=== PATIENT | male | born 1960 | race Caucasian/White ===

== ENCOUNTER 2024-11-21 09:43 | Inpatient (IN) | payer OTHER, SELFPAY ==
[2024-11-21 09:44] VITALS: BP 153/77; PULSE 89; RESP 16; TEMP 36.7; O2SAT 97
[2024-11-21 10:10] LABS: Absolute Neutrophil Count 9.1 X10^3/uL (2.0-7.7); Basophil# 0.05 X10^3/uL; Basophil% 0.4 % (0-1); Eosinophil# 0.12 X10^3/uL; Hematocrit 38.6 % (40-54); Hemoglobin 12.5 g/dL (13.0-16.5); Lymphocyte % 12.9 % (19-41); Mean Corp Hgb Conc 32.4 g/dL (32-36); Mean Corpuscular Hgb 28.4 pg (27.0-32.0); Mean Corpuscular Volume 87.7 fL (80-94); Mean Platelet Vol. 10.2 fl (6.2-12.0); Monocyte# 0.78 X10^3/uL; Monocyte% 6.7 % (0-10); NRBC Flagged by Analyzer 0 % (0-5); Neutrophil # 9.09 X10^3/uL (2.7-7.7); Neutrophil % 78.1 % (47-70); Platelet Count 477 K/mm3 (150-450); RBC Distribution Width SD 41.9 fl (35.1-43.9); White Blood Count 11.6 K/mm3 (4.4-11.0)
[2024-11-21 10:35] LABS: Anion Gap 14 (5-15); BUN 17 mg/dL (4-19); BUN/Creat Ratio 16.6 RATIO (10-20); Calcium,Total 9.9 mg/dL (7.6-11.0); Chloride 94 mmol/L (98-108); Creatinine, Serum 1.03 mg/dL (0.70-1.20); EST Glomerular Filtration Rate 82 (>60); Glucose 282 mg/dL (70-99); Potassium 4.8 mmol/L (3.3-5.1); Sodium Level 132 mmol/L (133-145)
[2024-11-21 11:28] LABS: Bacteria 0 SEEN /hpf (None Seen); Mucous, Urine 0 SEEN /hpf (<or=2+); Squamous Epithelial Cells - UA 0 SEEN /hpf (0-5); White Blood Cells 0 SEEN /hpf (0-5)
--- NOTE | 2024-11-21 11:30 | RAD_ITS ---
PROCEDURE: KNEE 4 OR MORE VIEWS REASON FOR EXAM: Right knee replacement on 10/11/2024. Wound on right knee started leaking fluid 3 days ago. TECHNIQUE: 4 view(s) of the right knee COMPARISON: None. FINDINGS: A total right knee arthroplasty is noted. No fractures are identified. Normal alignment. No effusion. Soft tissues are unremarkable. RAD/Knee 4 or More Views IMPRESSION: Total right knee arthroplasty in good alignment with no evidence of periprosthe tic fractures. Reading Location: [place] [address]
[2024-11-21 11:32] LABS: Color, Urine Yellow (Yellow); Glucose, Dipstick Normal (Normal); Ketone-Dipstick 15 mg/dl (Negative); Leukocyte Esterase-Dipstick Negative /ul (Negative); Nitrite-Dipstick Negative (Negative); Occult Blood-Urine Negative /ul (Negative); Protein-Dipstick 15 mg/dl (Negative); Urine Bilirubin Dipstick Negative (Negative); Urine Clarity Clear (Clear); Urine Urobilinogen Normal (Normal)
[2024-11-21 11:35] LABS: Prothrombin Time (Protime)PT. 13.6 SECONDS (11.7-14.9)
[2024-11-21 11:36] LABS: Partial Thromboplast Time 29.5 Seconds (24.1-36.2)
[2024-11-21 11:40] LABS: Red Blood Cells-Urine 0 SEEN /hpf (0-5)
[2024-11-21 11:43] VITALS: BP 132/72; PULSE 97; RESP 16; TEMP 36.7; O2SAT 95
[2024-11-21 11:46] VITALS: BMI 31.4
[2024-11-21 11:50] LABS: Lactic Acid < 1.0 mmol/L (0.0-2.0)
[2024-11-21 11:55] LABS: Absolute Lymphocyte Count 1.49 X10^3/uL (0.83-4.51); Basophil# 0.05 X10^3/uL; Basophil% 0.4 % (0-1); Eosinophil# 0.06 X10^3/uL; Eosinophils% 0.5 % (0-5); Hematocrit 35.3 % (40-54); Hemoglobin 11.6 g/dL (13.0-16.5); Lymphocyte # 1.49 X10^3/ul (0.83-4.51); Lymphocyte % 11.7 % (19-41); Mean Corp Hgb Conc 32.9 g/dL (32-36); Mean Corpuscular Hgb 28.8 pg (27.0-32.0); Mean Corpuscular Volume 87.6 fL (80-94); Mean Platelet Vol. 10.1 fl (6.2-12.0); Monocyte# 0.93 X10^3/uL; Monocyte% 7.3 % (0-10); NRBC Flagged by Analyzer 0 % (0-5); Neutrophil # 9.95 X10^3/uL (2.7-7.7); Neutrophil % 78.4 % (47-70); Platelet Count 411 K/mm3 (150-450); RBC Distribution Width SD 41.6 fl (35.1-43.9); Red Blood Count 4.03 M/mm3 (4.6-6.2); White Blood Count 12.7 K/mm3 (4.4-11.0)
[2024-11-21 12:20] LABS: AST(SGOT) 17 U/L (<=37); Alanine Aminotransfer ALT/SGPT 10 U/L (<=46); Albumin, Serum 3.6 g/dL (3.4-4.8); Alkaline Phosphatase 77 U/L (40-129); Anion Gap 13 (5-15); BUN 17 mg/dL (4-19); BUN/Creat Ratio 16.6 RATIO (10-20); Calcium,Total 9.5 mg/dL (7.6-11.0); Carbon Dioxide 21.6 mmol/L (21.0-32.0); Chloride 95 mmol/L (98-108); EST Glomerular Filtration Rate 85 (>60); Estimated Creatinine Clearance 91.99 ml/min (50-250); Globulin 3.7 g/dL (2.2-4.2); Glucose 188 mg/dL (70-99); Potassium 4.1 mmol/L (3.3-5.1); Protein, Total 7.4 g/dL (5.9-8.4); Sodium Level 129 mmol/L (133-145); Total Bilirubin 0.41 mg/dL (0.00-1.30)
[2024-11-21] MEDS: Morphine 4 MG/ML Syringe IV (12:21)
[2024-11-21] MEDS: Piperacil/Tazobactam 3.375 GM in 0.9% Normal Saline (50mL MB+) 50 ML IV ×2 (12:22→21:18)
[2024-11-21] MEDS: Ondansetron 4 MG/2 ML Vial IV (12:22)
--- NOTE | 2024-11-21 12:44 | EX.ED.DYSGE1 ---
HPI History of Present Illness Chief Complaint: Wound Narrative Narrative: Patient is a 64-year-old male with a past medical history of diabetes, knee replacement approximately [address] Humphrey presents to the emergency department with a chief complaint of right knee pain and pus coming from his knee. According to patient's and on Tuesday of this past week he started developing pain and had some drainage coming from his knee. They state that this progressively worsened and noted that he had a low-grade fever and his sugars have been running high. They state that they followed up with the physician hair or beauty salon assistant in Dr. Humphrey's office yesterday took cultures and noted that he would likely go to the operating room tomorrow for surgery. They prescribed doxycycline however according to patient and pain has been increasing and there is more purulent drainage coming from the wound therefore they came here further evaluation management. PFSH PFSH Home Medications ?Medication ?Instructions ?Recorded ?Last Taken ?Type chlorthalidone 25 mg tablet 25 mg PO DAILY 11/21/24 11/21/24 History diclofenac sodium 50 mg 50 mg PO Q12H 11/21/24 11/20/24 History tablet,delayed release doxycycline monohydrate 100 mg 100 mg PO Q12H 11/21/24 11/21/24 History capsule insulin glargine 100 unit/mL (3 55 unit subcut QHS 11/21/24 11/20/24 History mL) subcutaneous pen (Lantus Solostar U-100 Insulin) insulin lispro 100 unit/mL 1 sliding scale dose subcut 11/21/24 11/21/24 History subcutaneous pen .COMPLEX lisinopril 20 mg tablet 20 mg PO BID 11/21/24 11/21/24 History Allergy/AdvReac Type Severity Reaction Status Date / Time No Known Allergies Allergy Verified 11/21/24 09:47 Surgical History Total knee replacement status Social History Smoking Status: Unknown if ever smoked ROS ROS ED ROS Narrative Constitutional: Complains of fevers as noted above denies headache, lightness, dizziness Eyes: Denies change in vision double vision blurry vision Cardiovascular: Denies chest pain or palpitations Respiratory: Denies shortness of breath Abdomen: Denies nausea vomit diarrhea Neurological: Denies numbness, weakness, tingling Musculoskeletal: Complains of right knee pain and purulent drainage as noted above EXAM Physical Exam Narrative Exam Narrative: General: Patient lying bed rest comfortably appear to be uncomfortable from his right knee pain Head: Atraumatic, normocephalic Eyes: PERRL bilaterally, EOMI bilateral, no conjunctival injection noted Neck: Soft, supple, trachea midline Cardiovascular: Regular rate and rhythm no murmurs gallops rubs noted Respiratory: Clear to auscultation bilaterally Abdomen: No tenderness palpation Musculoskeletal: Patient has purulent drainage coming from the right knee at the distal aspect of his incision no surrounding erythema noted Extremities: Patient has pain with attempted range of motion of his right knee, +5/5 strength noted in the bilateral upper extremities as well as the left lower extremity, DP pulses +2/4 in the bilateral lower extremities Neurological: Patient follow commands knew that he was at [facility] year is 2024. Sensation grossly intact Skin: See musculoskeletal Const Vital Signs: 11/21/24 09:44 11/21/24 11:43 Temperature 98.1 F 98.1 F Temperature Source Oral Oral Pulse Rate 89 97 Respiratory Rate 16 16 Blood Pressure 153/77 H 132/72 H Blood Pressure Mean 102 92 Pulse Ox 97 95 Oxygen Delivery Method Room Air Room Air MDM MDM MDM Narrative Medical decision making narrative: Patient is a 64-year-old male who presented to the emergency department the chief complaint of purulent drainage coming from his right knee. On the differential diagnose includes but not limited to infected total knee arthroplasty, subcutaneous infection. Once workup is obtained reviewed he will be reevaluated. Patient CBC was significant for a leukocytosis of 12,000, hemoglobin is 11.6, plate count was noted be 411. Patient's INR normal at 1, PT of 13.6. Patient sodium was low indicating hyponatremia 129, anion gap was noted be 13, glucose 188. Patient lactic acid less than 1, AST and ALT were 17 and 10 respectively. Patient urinalysis showed no evidence of infection. Patient x-ray of the knee reviewed by myself and by radiology showed total knee arthroplasty in good alignment with no evidence of periprosthetic fractures. Patient's EKG reviewed and showed sinus rhythm rate 93 bpm. I called and discussed case with Dr. Humphrey and he states that given his medical comorbidities he is recommending admission to the hospitalist service. Will give the patient IV vancomycin and Zosyn. Discussed case with hospitalist Dr. Stanford who accept patient for admission. Patient notified as well as significant other bedside all question concerns answered. Lab Data Labs: Laboratory Results - last 24 hr 11/21/24 11/21/24 11/21/24 09:54 10:57 11:00 WBC 11.6 H 12.7 H RBC 4.40 L 4.03 L Hgb 12.5 L 11.6 L Hct 38.6 L 35.3 L MCV 87.7 87.6 MCH 28.4 28.8 MCHC 32.4 32.9 RDW Std Deviation 41.9 41.6 RDW Coeff of Primo 13.0 13.0 Plt Count 477 H 411 MPV 10.2 10.1 Immature Gran % (Auto) 0.900 1.700 H Neut % (Auto) 78.1 H 78.4 H Lymph % (Auto) 12.9 L 11.7 L [place] % (Auto) 6.7 7.3 Eos % (Auto) 1.0 0.5 Baso % (Auto) 0.4 0.4 Absolute Neuts (auto) 9.1 H 10.0 H Absolute Lymphs (auto) 1.50 1.49 Nucleated RBC % 0 0 PT 13.6 INR 1.0 APTT 29.5 Sodium 132 L 129 L Potassium 4.8 4.1 Chloride 94 L 95 L Carbon Dioxide 24.0 21.6 Anion Gap 14 13 BUN 17 17 Creatinine 1.03 1.00 Estim Creat Clear Calc 91.99 Est GFR (MDRD) Non-Af 82 85 BUN/Creatinine Ratio 16.6 16.6 Glucose 282 H 188 H Lactic Acid < 1.0 Calcium 9.9 9.5 Total Bilirubin 0.41 AST 17 ALT 10 Alkaline Phosphatase 77 Total Protein 7.4 Albumin 3.6 Globulin 3.7 Albumin/Globulin Ratio 1.0 Urine Color Urine Clarity Urine pH Ur Specific [place] Urine Protein Urine Glucose (UA) Urine Ketones Urine Occult Blood Urine Nitrite Urine Bilirubin Urine Urobilinogen Ur Leukocyte Esterase Urine RBC Urine WBC Ur Squamous Epith Cells Urine Bacteria Urine Mucus 11/21/24 11:18 WBC RBC Hgb Hct MCV MCH MCHC RDW Std Deviation RDW Coeff of Primo Plt Count MPV Immature Gran % (Auto) Neut % (Auto) Lymph % (Auto) [place] % (Auto) Eos % (Auto) Baso % (Auto) Absolute Neuts (auto) Absolute Lymphs (auto) Nucleated RBC % PT INR APTT Sodium Potassium Chloride Carbon Dioxide Anion Gap BUN Creatinine Estim Creat Clear Calc Est GFR (MDRD) Non-Af BUN/Creatinine Ratio Glucose Lactic Acid Calcium Total Bilirubin AST ALT Alkaline Phosphatase Total Protein Albumin Globulin Albumin/Globulin Ratio Urine Color Yellow Urine Clarity Clear Urine pH 6.0 Ur Specific [place] 1.020 Urine Protein 15 H Urine Glucose (UA) Normal Urine Ketones 15 H Urine Occult Blood Negative Urine Nitrite Negative Urine Bilirubin Negative Urine Urobilinogen Normal Ur Leukocyte Esterase Negative Urine RBC 0 SEEN Urine WBC 0 SEEN Ur Squamous Epith Cells 0 SEEN Urine Bacteria 0 SEEN Urine Mucus 0 SEEN Radiography Diagnostic Testing: Clinical Impression(s) from Imaging Studies Knee X-Ray 11/21/24 11:30 IMPRESSION: Total right knee arthroplasty in good alignment with no evidence of periprosthetic fractures. Reading Location: [place] [address] Discharge Plan Triage Chief Complaint: Wound ED Provider: Shaheen Angelo Dx/Rx/DC Orders Prescriptions: No Action lisinopril 20 mg tablet 20 mg PO BID chlorthalidone 25 mg tablet 25 mg PO DAILY doxycycline monohydrate 100 mg capsule 100 mg PO Q12H diclofenac sodium 50 mg tablet,delayed release (DR/EC) 50 mg PO Q12H insulin lispro 100 unit/mL insulin pen 1 sliding scale dose SUBCUT .COMPLEX Patient Comments: Takes 20 units at breakfast, 20 units with lunch and 30 units with dinner Strength 100 UNIT/ML Rx Instructions: 1 sliding scale dose subcutaneously Takes 20 units at breakfast, 20 units with lunch and 30 units with dinner; insulin glargine [Lantus Solostar U-100 Insulin] 100 unit/mL (3 mL) insulin pen 55 unit subcut [facility] Primary Care Provider: Jose Joya Print Language: Stateless
--- NOTE | 2024-11-21 12:47 | PCM.HP.STD ---
HPI - General General Date of Admission: 11/21/24 Date of Service: 11/21/24 Chief Complaint: right knee pain and wound HPI Narrative JACQUES MALONEY, is a 64 M with a PMH as outlined who presents via the ED on 11/21/2024 with a complaint of right knee pain and wound. He had right knee replacement about [address] Humphrey and started having the pain in hte knee as well as the pus drainage. He said the pain started 3 days prior to admission. He was unable to fully flex or extend the knee and he notes that the knee was swollen and red. He did not have any discharge from the knee at that time but subsequently noted pus drainage a day prior to admission. He admitted to a low-grade fever but denied, chills, cough, chest pain, palpitations, swelling of the RLE or any other symptoms. He had been seen in the orthopedic surgeons office by LANCE the day before admission and started on p.o. doxycycline of which she took 2 doses before coming into the ED. Review of systems is otherwise negative. Vitals in the ED were Bp of 132/72, KS of 97, RR of 16 and temp of 98.1F. He was saturating at 95% on room air. CBC showed hb of 11.6, wbc of 12.7, platelets of 411. Chemistry showed sodium of 129, potassium of 4.1, bicarb of 21.6 and Cr of 1. Urinalysis showed no evidence of UTI. Xray of the right knee showed right total knee arthroplasty in good alignment with no evidence of periprosthetic fractures. Orthopedics was contacted by ED and recommended admission to medicine. Patient was started on IV vancomycin and zosyn and orthopedics is planning on surgery tomorrow. [facility] Home Medications ?Medication ?Instructions ?Recorded ?Last Taken ?Type chlorthalidone 25 mg tablet 25 mg PO DAILY 11/21/24 11/21/24 History diclofenac sodium 50 mg 50 mg PO Q12H 11/21/24 11/20/24 History tablet,delayed release doxycycline monohydrate 100 mg 100 mg PO Q12H 11/21/24 11/21/24 History capsule insulin glargine 100 unit/mL (3 55 unit subcut QHS 11/21/24 11/20/24 History mL) subcutaneous pen (Lantus Solostar U-100 Insulin) insulin lispro 100 unit/mL 1 sliding scale dose subcut 11/21/24 11/21/24 History subcutaneous pen .COMPLEX lisinopril 20 mg tablet 20 mg PO BID 11/21/24 11/21/24 History Allergy/AdvReac Type Severity Reaction Status Date / Time No Known Allergies Allergy Verified 11/21/24 09:47 Surgical History Total knee replacement status Social History Smoking Status: Unknown if ever smoked ROS Constitutional Constitutional: Reports fever(s); Denies anorexia, chills, fatigue, malaise or weakness Eyes Eyes: Denies change in vision ENT HEENT: Denies dysphagia, headache(s) or sore throat Cardiovascular Cardiovascular: Denies chest pain, dyspnea on exertion, edema, lightheadedness, orthopnea or palpitations Respiratory/Chest Respiratory/Chest: Denies cough, dyspnea, shortness of breath at rest or shortness of breath with exertion Gastrointestinal Gastrointestinal: Denies abdominal pain, constipation, diarrhea, nausea or vomiting Genitourinary Genitourinary: Denies burning urination or dysuria Musculoskeletal Musculoskeletal: Reports joint pain and joint swelling; Denies arthralgias or back pain Neurologic Neurologic: Denies confusion, dizziness, focal weakness, headache(s), numbness, seizure-like activity or seizures Psychiatric Psychiatric: Denies anxiety or depression Endocrine Endocrinology: Denies change in body appearance Vital Signs Vital Signs Vital Signs: 11/21/24 09:44 11/21/24 11:43 Temperature 98.1 F 98.1 F Temperature Source Oral Oral Pulse Rate 89 97 Respiratory Rate 16 16 Blood Pressure 153/77 H 132/72 H Blood Pressure Mean 102 92 Pulse Ox 97 95 Oxygen Delivery Method Room Air Room Air Weight Weight: 225 lb 1.471 oz Body Mass Index (BMI) 31.4 Physical Exam Const alert, oriented x3, no apparent distress and average body habitus General Appearance: cooperative HEENT normocephalic, head/scalp atraumatic, hearing grossly normal bilaterally and moist oral mucous membranes Mouth: oral and palatal mucosa normal Eyes PERRL, EOMs intact bilaterally and conjunctivae normal Neck no lymphadenopathy and supple Resp normal respiratory effort, no retractions, no use of accessory muscles and clear to auscultation bilaterally Cardio regular rate, regular rhythm, S1 normal heart sound, S2 normal heart sound and no murmurs GI normal to inspection, nondistended, normoactive bowel sounds, soft to palpation, non-tender and non-distended Extremity Extremity Narrative: as under skin. Limited flexion Skin Skin Narrative: right knee swollen, erythematous, 3 areas of pus discharge, mildly tender to touch. Neuro oriented x3 and CN's II-XII intact bilaterally Sensorium / Orientation: awake and alert Motor Exam: strength 5/5 throughout Psych affect normal Results Lab / Micro Data 11/21/24 11:00 11/21/24 11:00 Labs: Laboratory Results - last 24 hr 11/21/24 09:54: WBC 11.6 H, RBC 4.40 L, Hgb 12.5 L, Hct 38.6 L, MCV 87.7, MCH 28.4, MCHC 32.4, RDW Std Deviation 41.9, RDW Coeff of Primo 13.0, Plt Count 477 H, MPV 10.2, Immature Gran % (Auto) 0.900, Neut % (Auto) 78.1 H, Lymph % (Auto) 12.9 L, [place] % (Auto) 6.7, Eos % (Auto) 1.0, Baso % (Auto) 0.4, Absolute Neuts (auto) 9.1 H, Absolute Lymphs (auto) 1.50, Nucleated RBC % 0, Sodium 132 L, Potassium 4.8, Chloride 94 L, Carbon Dioxide 24.0, Anion Gap 14, BUN 17, Creatinine 1.03, Est GFR (MDRD) Non-Af 82, BUN/Creatinine Ratio 16.6, Glucose 282 H, Calcium 9.9 11/21/24 10:57: PT 13.6, INR 1.0, APTT 29.5, Lactic Acid < 1.0 11/21/24 11:00: WBC 12.7 H, RBC 4.03 L, Hgb 11.6 L, Hct 35.3 L, MCV 87.6, MCH 28.8, MCHC 32.9, RDW Std Deviation 41.6, RDW Coeff of Primo 13.0, Plt Count 411, MPV 10.1, Immature Gran % (Auto) 1.700 H, Neut % (Auto) 78.4 H, Lymph % (Auto) 11.7 L, [place] % (Auto) 7.3, Eos % (Auto) 0.5, Baso % (Auto) 0.4, Absolute Neuts (auto) 10.0 H, Absolute Lymphs (auto) 1.49, Nucleated RBC % 0, Sodium 129 L, Potassium 4.1, Chloride 95 L, Carbon Dioxide 21.6, Anion Gap 13, BUN 17, Creatinine 1.00, Estim Creat Clear Calc 91.99, Est GFR (MDRD) Non-Af 85, BUN/Creatinine Ratio 16.6, Glucose 188 H, Calcium 9.5, Total Bilirubin 0.41, AST 17, ALT 10, Alkaline Phosphatase 77, Total Protein 7.4, Albumin 3.6, Globulin 3.7, Albumin/Globulin Ratio 1.0 11/21/24 11:18: Urine Color Yellow, Urine Clarity Clear, Urine pH 6.0, Ur Specific [place] 1.020, Urine Protein 15 H, Urine Glucose (UA) Normal, Urine Ketones 15 H, Urine Occult Blood Negative, Urine Nitrite Negative, Urine Bilirubin Negative, Urine Urobilinogen Normal, Ur Leukocyte Esterase Negative, Urine RBC 0 SEEN, Urine WBC 0 SEEN, Ur Squamous Epith Cells 0 SEEN, Urine Bacteria 0 SEEN, Urine Mucus 0 SEEN Imaging Radiology Impression Knee X-Ray 11/21/24 11:30 IMPRESSION: Total right knee arthroplasty in good alignment with no evidence of periprosthetic fractures. Reading Location: [place] [address] Assessment & Plan Assessment/Plan (1) Postoperative infection of knee: PLAN: Plan #Post operative infection of the right knee Patient had right knee replacement by Dr. Humphrey 6 weeks ago. Patient said he was doing well until 3 days ago when he noticed swelling and redness of his right knee. The day before admission he noted that he was having discharge from the right knee also. He had been seen by the PA in Dr. Carrera's office the day before admission and started on p.o. doxycycline which she took only 2 doses. Patient having pus draining from his knee. He also has limited range of movement in the knee is swollen and erythematous. WBC is 12.7. X-ray of the knee done showed total right knee arthroplasty in good alignment with no evidence of periprosthetic fractures. Will start on IV vancomycin and Zosyn. Will get wound cultures and blood cultures. Orthopedic surgery consulted. ED doctor did speak to Dr. Humphrey who said he will plan for surgery tomorrow. #Type 2 diabetes mellitus On Lantus 55 units nightly. Insulin sliding scale. Accu-Cheks ACHS. #Hypertension: On chlorthalidone. DVT prophylaxis: Lovenox CODE STATUS: Full code Patient and counseled extensively about different types of CODE STATUS including full code, DNR CCA and DNR CCA. Patient elects to be full code. Total [id number] time 17 minutes. Charges/Coding Visit Charges Inpatient E&M: 94155 Init Hosp L3 Procedures Hospitalists Procedures: 64515 Advncd Care Plan 30 Min
[2024-11-21] MEDS: Vancomycin HCl 1,500 MG in 0.9% Normal Saline (500mL Bag) 500 ML 250 MG IV (13:26)
[2024-11-21 13:28] VITALS: BP 132/71; PULSE 86; RESP 16; TEMP 37.1; O2SAT 97
[2024-11-21 13:56] VITALS: BP 137/75; PULSE 85; RESP 18; TEMP 37.1; O2SAT 97
[2024-11-21 15:41] VITALS: BP 132/72; PULSE 91; RESP 16; TEMP 36.8; O2SAT 94
--- NOTE | 2024-11-21 16:20 | PCM.RX.CS ---
Consult Antibiotic Management Pharmacy has been consulted to manage selected antibiotic: Vancomycin Type of Intervention Type of Consult: New start Suspected Infection Suspected Infection: Other (joint infection) Labs Labs: Sodium 129 mmol/L (133-145) L 11/21/24 11:00 Potassium 4.1 mmol/L (3.3-5.1) 11/21/24 11:00 Chloride 95 mmol/L (98-108) L 11/21/24 11:00 Carbon Dioxide 21.6 mmol/L (21.0-32.0) 11/21/24 11:00 Anion Gap 13 (5-15) 11/21/24 11:00 BUN 17 mg/dL (4-19) 11/21/24 11:00 Creatinine 1.00 mg/dL (0.70-1.20) 11/21/24 11:00 Est GFR (MDRD) Non-Af 85 (>60) 11/21/24 11:00 BUN/Creatinine Ratio 16.6 RATIO (10-20) 11/21/24 11:00 Glucose 188 mg/dL (70-99) H 11/21/24 11:00 Microbiology Microbiology: Microbiology 11/21/24 11:05 Wound - Knee Gram Stain - Final Pharmacy Plan for Drug Dosing Pharmacy Plan for Drug Dosing: NEW START IV VANCOMYCIN Consulting Physician: Abdoulaye Indication: joint infection Goal Trough: 15-20 mg/dL SrCr: 1 mg/dL CrCl: 91 mL/min Comments: ER dose of 1500mg given 11/21 @ 1326 Vancomycin Dose: Will start 2000mg Q12 11/22 @ 0100 and get a trough prior to 4th total dose per policy. Pending Level: 11/23 @ 0030 Pharmacy Service will continue to monitor and adjust dosing as required.
[2024-11-21 16:56] LABS: Bedside Glucose 61 mg/dL (74-106)
[2024-11-21 17:29] VITALS: BMI 32.0
[2024-11-21 19:56] VITALS: BP 142/70; PULSE 90; RESP 18; TEMP 37; O2SAT 98
[2024-11-21] MEDS: Acetaminophen 325 MG Tablet 650 MG PO (20:01)
[2024-11-21] MEDS: Lisinopril 20 MG Tablet PO (21:18)
[2024-11-21] MEDS: oxyCODONE 5 MG Tablet PO (21:18)
[2024-11-21] MEDS: Insulin Glargine-YFGN 100 UNIT/ML Pen 55 UNIT SC (21:41)
[2024-11-21] MEDS: Insulin Lispro 100 UNIT/ML INSULN.PEN SC (21:42)
[2024-11-21 22:56] LABS: Bedside Glucose 251 mg/dL (74-106)
[2024-11-22] VITALS (14 sets, daily range): BP systolic 108–158; BP diastolic 61–91; PULSE 73–97; RESP 16–18; TEMP 35.7–37; O2SAT 94–100; BMI 32.0
[2024-11-22] MEDS: Vancomycin HCl 2,000 MG in 0.9% Normal Saline (500mL Bag) 500 ML 250 MG IV ×2 (01:39→14:03)
[2024-11-22 05:54] LABS: Absolute Lymphocyte Count 1.95 X10^3/uL (0.83-4.51); Absolute Neutrophil Count 7.7 X10^3/uL (2.0-7.7); Basophil# 0.04 X10^3/uL; Basophil% 0.4 % (0-1); Eosinophils% 1.8 % (0-5); Hematocrit 34.8 % (40-54); Hemoglobin 11.4 g/dL (13.0-16.5); Lymphocyte # 1.95 X10^3/ul (0.83-4.51); Lymphocyte % 17.8 % (19-41); Mean Corp Hgb Conc 32.8 g/dL (32-36); Mean Corpuscular Hgb 28.6 pg (27.0-32.0); Mean Corpuscular Volume 87.4 fL (80-94); Mean Platelet Vol. 9.8 fl (6.2-12.0); Monocyte# 0.99 X10^3/uL; Monocyte% 9.1 % (0-10); NRBC Flagged by Analyzer 0 % (0-5); Neutrophil # 7.69 X10^3/uL (2.7-7.7); Neutrophil % 70.4 % (47-70); Platelet Count 384 K/mm3 (150-450); RBC Distribution Width CV 13.2 % (11.6-14.6); RBC Distribution Width SD 42.2 fl (35.1-43.9); Red Blood Count 3.98 M/mm3 (4.6-6.2); White Blood Count 10.9 K/mm3 (4.4-11.0)
[2024-11-22] MEDS: Piperacil/Tazobactam 3.375 GM in 0.9% Normal Saline (50mL MB+) 50 ML IV ×3 (06:05→23:08)
[2024-11-22] MEDS: Insulin Lispro 100 UNIT/ML INSULN.PEN SC ×3 (06:50→21:46)
[2024-11-22 06:53] LABS: Anion Gap 11 (5-15); BUN 15 mg/dL (4-19); BUN/Creat Ratio 14.5 RATIO (10-20); Calcium,Total 9.3 mg/dL (7.6-11.0); Chloride 97 mmol/L (98-108); Creatinine, Serum 1.03 mg/dL (0.70-1.20); EST Glomerular Filtration Rate 82 (>60); Estimated Creatinine Clearance 88.55 ml/min (50-250); Glucose 199 mg/dL (70-99); Potassium 4.6 mmol/L (3.3-5.1); Sodium Level 133 mmol/L (133-145)
[2024-11-22 07:26] LABS: Hemoglobin A1c 6.7 % (<=5.6)
[2024-11-22 07:46] LABS: Bedside Glucose 204 mg/dL (74-106)
--- NOTE | 2024-11-22 07:54 | PCM.CONS.GEN ---
HPI Consult Data Date of Consult: 11/22/24 HPI Narrative HPI Narrative: History and Physical Subjective CC: Patient presents status post right total knee arthroplasty incision check. HPI: Patient is a 64-year-old male presenting about 6 weeks out following right total knee arthroplasty. Patient states that on Tuesday night he had a lump start right under the incision at the distal portion that was about a pea-sized. Patient states that this lump has gotten larger since Tuesday and increased in redness. Patient states that he felt that there was a change in his knee about 2 weeks ago when his knee got stiff and hard to move and he had a stopping point in therapy. Patient states for the past 2 days his sugar has been high into the 250s which is unlike him. Patient states that in physical therapy today they thought there was potentially drainage. Patient denies having any falls or scrapes over the knee. Patient denies any injuries or bumping of the knee. Patient denies any fever, chills, signs of infection. Patient denies any new numbness or tingling. Patient denies history of deep vein thrombosis and/or pulmonary embolism. Patient denies recent use of antibiotics other than doxycycline which she started last night. Patient denies any current dental pain or dental infections. Patient does admit to being a type I diabetic. Patient states that his sugars have been very high. Patient states that he is taking aspirin 1 time per day for anticoagulation at this point. Patient denies any changes since his last clearance with primary care provider on 09/26/2024. Patient's allergy list was reviewed and updated in office today. Allergies are no known drug allergies. Medication list was reviewed and updated in office today. Patient and his called on 11/21/2024 stating that the knee looked worse, red, and busted open. Patient and his were concerned that they should go to the emergency department with him being a type I diabetic. Patient and his were advised that they could go to [facility] emergency department at this time. Physical exam: Patient walks with a relatively nonantalgic gait. Patient is without assistive device in office today. Right knee on inspection is with 2 fluctuant erythematous swellings under the incision at the distal pole of the incision. With compression of fluctuant mass purulent fluid is expressed. Extension is to 0 degrees with some restriction and pain. Flexion is to 90 degrees with restriction and pain. Sensation intact to light touch. Neurovascularly intact overall. Negative Homans bilaterally. X-rays at 2-week visit revealed stable implants with no evidence of loosening or lucencies. No lytic or blastic lesions were appreciated. Advance Care Plan: Other Directive, LIVING WILL Effective Date: 08/08/2024 Other Directive, POA Effective Date: 08/08/2024 Past Medical History: Medical Problems: Arthritis, Diabetes, Hypercholesterolemia, High Blood Pressure, hyperlipidemia Acid Reflux - occasionally Accidents: None Surgical Hx: Hernia Repair - x2 bilaterally Knee Replacement Rt - (10/11/2024) ROBOTIC ASSISTED DR. TILLMAN AT [facility] Anesthesia Complications: None Assistive Devices: Cane Reviewed, no changes - 11/20/2024 at 2:38 pm by Lorene Lo Family History: Mother: Stroke. 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 Personal Habits: Cigarette Use: Never Smoked Cigarettes.Smokeless Tobacco: Never Used Smokeless Tobacco.E-Cigarette Use: Never used.Alcohol: Denies use.Drug Use: Denies Use.Enjoy Exercising: Daily. Reviewed, no changes - 11/20/2024 at 2:39 pm by Lorene Lo Review Of Systems: Constitutional: Denies change in appetite, fever and weight change. Cardiovasular: Denies chest pain, heart murmur and irregular heartbeat. Respiratory: Denies cough, pneumonia, shortness of breath, tuberculosis and wheezing. Gastrointestinal: Reports heartburn, but denies constipation, diarrhea, nausea, rectal itching, bloody stools and vomiting. Genitourinary: . (F Genital Sx) . (Urinary Sx) Musculoskeletal: Reports leg swelling, pain and trouble walking, but denies weakness. Skin: Denies Raynaud's, history of shingles and tattoo. Neurological: Denies ambulatory dysfunction, dizziness, numbness/tingling and tremor. Psychiatric: Reports stress, but denies anxiety and insomnia. Hematologic/Lymphatic: Denies anemia, bleeding/bruising tendency and past transfusion. Reviewed, no changes - 11/20/2024 at 4:11 pm by Kiarra Alvarado Impression and plan: 1. Possible infection following right total knee arthroplasty. The fluid was attempted to be pulled from fluctuant mass in office today. Aspiration of the mass was unsuccessful. Compression of fluctuant mass resulted in expression of purulent fluid. At this time cultures were taken of purulent fluid. Patient was given a lab order slip for blood work which included CBC, ESR, CRP to evaluate for possible infection. At this time we have reserved time at [facility] to do an irrigation and debridement on afternoon. At this time patient was placed on doxycycline. Doxycycline was sent to patient's pharmacy of choice. We will plan for surgery as an observation patient at [facility]. Patient and his called in on 11/21/2024 stating that the wound has busted open and the knee is warm and felt like maybe they should go to the emergency department. Patient and his were advised to head to the emergency department at this point. The surgeon did discuss and review all treatment options with the patient including surgical versus nonsurgical. At this time the patient does wish to proceed with the above-stated procedure. Potential risks benefits and complications of the procedure were discussed and reviewed with the patient including but not limited to , infection, nerve and blood vessel damage, persistent pain, numbness, tingling, paresthesias, blood clot, pulmonary embolism, in the requirement for possible further surgery. Patient expressed full understanding. Has no further questions for the doctor. Does agree to proceed with the above-stated procedure, and has signed the appropriate surgery consent form. Patient denies history of deep vein thrombosis and/or pulmonary embolism. Patient denies recent use of antibiotics other than doxycycline which she started last night. Patient denies any current dental pain or dental infections. Patient does admit to being a type I diabetic. Patient states that his sugars have been very high. Patient states that he is taking aspirin 1 time per day for anticoagulation at this point. Patient denies any changes since his last clearance with primary care provider on 09/26/2024. Patient's allergy list was reviewed and updated in office today. Allergies are no known drug allergies. Medication list was reviewed and updated in office today. Postoperatively medications: DVT prophylaxis: Patient will be on aspirin 81 mg twice daily for 4 weeks postoperatively. Patient will be wearing TAWANA hose for 2 weeks postoperatively. Pain medications: Patient will be on Tylenol extra strength and oxycodone for pain postoperatively. Patient will be on famotidine for 30 days postoperatively. Patient will be on doxycycline for 2 weeks postoperatively. Patient can resume diclofenac postoperatively. OARRS report was reviewed today. The risk of abuse potential for narcotic pain medications was discussed and reviewed. Patient was advised not to drive a motor vehicle or operate heavy equipment while taking narcotic pain medicine. They were instructed to use the minimal amount of narcotic pain medication as required for their current pain and decrease its use as is appropriate for their pain. Patient voiced understanding. Natural history of the disease process was discussed with patient. Patient was given the opportunity to ask questions. All questions were answered appropriately and to the best of my ability. This dictation was created using voice recognition software. Phonetic and/or minor grammatical errors may exist. PFSH Home Medications ?Medication ?Instructions ?Recorded ?Last Taken ?Type chlorthalidone 25 mg tablet 25 mg PO DAILY BP 11/21/24 11/20/24 10:00 History 25 mg diclofenac sodium 50 mg 50 mg PO Q12H pain 11/21/24 11/20/24 22:00 History tablet,delayed release 50 mg doxycycline monohydrate 100 mg 100 mg PO Q12H ATB 11/21/24 11/20/24 22:00 History capsule 100 mg insulin glargine 100 unit/mL (3 55 unit subcut QHS blood sugar 11/21/24 11/20/24 22:00 History mL) subcutaneous pen (Lantus 55 units Solostar U-100 Insulin) insulin lispro 100 unit/mL 1 sliding scale dose subcut 11/21/24 11/20/24 17:00 History subcutaneous pen .COMPLEX blood sugar 30 lisinopril 20 mg tablet 20 mg PO BID BP 11/21/24 11/20/24 22:00 History 20 mg Allergy/AdvReac Type Severity Reaction Status Date / Time No Known Allergies Allergy Verified 11/21/24 09:47 Surgical History Total knee replacement status Social History Smoking Status: Never smoker Lab / Micro Data 11/22/24 05:37 11/22/24 05:37 Labs: Laboratory Results - last 24 hr 11/21/24 09:54: WBC 11.6 H, RBC 4.40 L, Hgb 12.5 L, Hct 38.6 L, MCV 87.7, MCH 28.4, MCHC 32.4, RDW Std Deviation 41.9, RDW Coeff of Primo 13.0, Plt Count 477 H, MPV 10.2, Immature Gran % (Auto) 0.900, Neut % (Auto) 78.1 H, Lymph % (Auto) 12.9 L, [place] % (Auto) 6.7, Eos % (Auto) 1.0, Baso % (Auto) 0.4, Absolute Neuts (auto) 9.1 H, Absolute Lymphs (auto) 1.50, Nucleated RBC % 0, Sodium 132 L, Potassium 4.8, Chloride 94 L, Carbon Dioxide 24.0, Anion Gap 14, BUN 17, Creatinine 1.03, Est GFR (MDRD) Non-Af 82, BUN/Creatinine Ratio 16.6, Glucose 282 H, Calcium 9.9 11/21/24 10:57: PT 13.6, INR 1.0, APTT 29.5, Lactic Acid < 1.0 11/21/24 11:00: WBC 12.7 H, RBC 4.03 L, Hgb 11.6 L, Hct 35.3 L, MCV 87.6, MCH 28.8, MCHC 32.9, RDW Std Deviation 41.6, RDW Coeff of Primo 13.0, Plt Count 411, MPV 10.1, Immature Gran % (Auto) 1.700 H, Neut % (Auto) 78.4 H, Lymph % (Auto) 11.7 L, [place] % (Auto) 7.3, Eos % (Auto) 0.5, Baso % (Auto) 0.4, Absolute Neuts (auto) 10.0 H, Absolute Lymphs (auto) 1.49, Nucleated RBC % 0, Sodium 129 L, Potassium 4.1, Chloride 95 L, Carbon Dioxide 21.6, Anion Gap 13, BUN 17, Creatinine 1.00, Estim Creat Clear Calc 91.99, Est GFR (MDRD) Non-Af 85, BUN/Creatinine Ratio 16.6, Glucose 188 H, Calcium 9.5, Total Bilirubin 0.41, AST 17, ALT 10, Alkaline Phosphatase 77, Total Protein 7.4, Albumin 3.6, Globulin 3.7, Albumin/Globulin Ratio 1.0 11/21/24 11:18: Urine Color Yellow, Urine Clarity Clear, Urine pH 6.0, Ur Specific [place] 1.020, Urine Protein 15 H, Urine Glucose (UA) Normal, Urine Ketones 15 H, Urine Occult Blood Negative, Urine Nitrite Negative, Urine Bilirubin Negative, Urine Urobilinogen Normal, Ur Leukocyte Esterase Negative, Urine RBC 0 SEEN, Urine WBC 0 SEEN, Ur Squamous Epith Cells 0 SEEN, Urine Bacteria 0 SEEN, Urine Mucus 0 SEEN 11/21/24 16:32: POC Glucose 61 L 11/21/24 21:33: POC Glucose 251 H 11/22/24 05:37: WBC 10.9, RBC 3.98 L, Hgb 11.4 L, Hct 34.8 L, MCV 87.4, MCH 28.6, MCHC 32.8, RDW Std Deviation 42.2, RDW Coeff of Primo 13.2, Plt Count 384, MPV 9.8, Immature Gran % (Auto) 0.500, Neut % (Auto) 70.4 H, Lymph % (Auto) 17.8 L, [place] % (Auto) 9.1, Eos % (Auto) 1.8, Baso % (Auto) 0.4, Absolute Neuts (auto) 7.7, Absolute Lymphs (auto) 1.95, Nucleated RBC % 0, Sodium 133, Potassium 4.6, Chloride 97 L, Carbon Dioxide 25.0, Anion Gap 11, BUN 15, Creatinine 1.03, Estim Creat Clear Calc 88.55, Est GFR (MDRD) Non-Af 82, BUN/Creatinine Ratio 14.5, Glucose 199 H, Hemoglobin A1c 6.7, Calcium 9.3 11/22/24 06:45: POC Glucose 204 H Micro: Microbiology 11/21/24 11:05 Wound - Knee Gram Stain - Final Imaging Radiology Impression Knee X-Ray 11/21/24 11:30 IMPRESSION: Total right knee arthroplasty in good alignment with no evidence of periprosthetic fractures. Reading Location: [place] [id number]
--- NOTE | 2024-11-22 08:26 | WOUNDNOTE ---
Pt going to surgery today with Dr Humphrey. will leave dressing in place for now.
--- NOTE | 2024-11-22 10:57 | PN.HOSP_ITS ---
Reason for Visit Reason for Visit: Diagnoses Pyogenic arthritis, unspecified (11/21/24) Infection following a procedure, other surgical site, initial encounter (11/21/24) Subjective Subjective Saw patient at bedside this morning. Patient was sitting up comfortably in bed, conversing normally, in no acute distress. Had Seymour wrap bandage in place over right knee. Patient denies any fevers or chills. Denied any pain in the right knee at rest. No other acute concerns at this time. Objective Data Objective Data Vital Signs: Vital Signs Temp Pulse Resp BP Pulse Ox O2 Del Method 98.6 F 87 16 128/72 H 97 Room Air 11/22/24 09:35 11/22/24 09:35 11/22/24 09:35 11/22/24 09:35 11/22/24 09:35 11/22/24 09:35 Oxygen Delivery Method Room Air Weight: 103.7 kg Body Mass Index (BMI) 32.0 Intake & Output: Intake and Output for Last 24 Hours 11/20/24 11/21/24 11/22/24 23:59 23:59 23:59 Intake Total 580 / 580 990 / 990 Output Total 475 / 475 2100 / 2100 Balance 105 / 105 -1110 / -1110 Lab / Micro Data 11/22/24 05:37 11/22/24 05:37 Labs: Laboratory Results - last 24 hr 11/21/24 10:57: PT 13.6, INR 1.0, APTT 29.5, Lactic Acid < 1.0 11/21/24 11:00: WBC 12.7 H, RBC 4.03 L, Hgb 11.6 L, Hct 35.3 L, MCV 87.6, MCH 28.8, MCHC 32.9, RDW Std Deviation 41.6, RDW Coeff of Primo 13.0, Plt Count 411, MPV 10.1, Immature Gran % (Auto) 1.700 H, Neut % (Auto) 78.4 H, Lymph % (Auto) 11.7 L, [place] % (Auto) 7.3, Eos % (Auto) 0.5, Baso % (Auto) 0.4, Absolute Neuts (auto) 10.0 H, Absolute Lymphs (auto) 1.49, Nucleated RBC % 0, Sodium 129 L, Potassium 4.1, Chloride 95 L, Carbon Dioxide 21.6, Anion Gap 13, BUN 17, Creatinine 1.00, Estim Creat Clear Calc 91.99, Est GFR (MDRD) Non-Af 85, BUN/Creatinine Ratio 16.6, Glucose 188 H, Calcium 9.5, Total Bilirubin 0.41, AST 17, ALT 10, Alkaline Phosphatase 77, Total Protein 7.4, Albumin 3.6, Globulin 3.7, Albumin/Globulin Ratio 1.0 11/21/24 11:18: Urine Color Yellow, Urine Clarity Clear, Urine pH 6.0, Ur Specific [place] 1.020, Urine Protein 15 H, Urine Glucose (UA) Normal, Urine Ketones 15 H, Urine Occult Blood Negative, Urine Nitrite Negative, Urine Bilirubin Negative, Urine Urobilinogen Normal, Ur Leukocyte Esterase Negative, Urine RBC 0 SEEN, Urine WBC 0 SEEN, Ur Squamous Epith Cells 0 SEEN, Urine Bacteria 0 SEEN, Urine Mucus 0 SEEN 11/21/24 16:32: POC Glucose 61 L 11/21/24 21:33: POC Glucose 251 H 11/22/24 05:37: WBC 10.9, RBC 3.98 L, Hgb 11.4 L, Hct 34.8 L, MCV 87.4, MCH 28.6, MCHC 32.8, RDW Std Deviation 42.2, RDW Coeff of Primo 13.2, Plt Count 384, MPV 9.8, Immature Gran % (Auto) 0.500, Neut % (Auto) 70.4 H, Lymph % (Auto) 17.8 L, [place] % (Auto) 9.1, Eos % (Auto) 1.8, Baso % (Auto) 0.4, Absolute Neuts (auto) 7.7, Absolute Lymphs (auto) 1.95, Nucleated RBC % 0, Sodium 133, Potassium 4.6, Chloride 97 L, Carbon Dioxide 25.0, Anion Gap 11, BUN 15, Creatinine 1.03, Estim Creat Clear Calc 88.55, Est GFR (MDRD) Non-Af 82, BUN/Creatinine Ratio 14.5, G lucose 199 H, Hemoglobin A1c 6.7, Calcium 9.3 11/22/24 06:45: POC Glucose 204 H Micro: Microbiology 11/21/24 11:05 Wound - Knee Gram Stain - Final 11/21/24 11:05 Wound - Knee Wound Culture - Preliminary No growth-Final to follow Radiography Diagnostic Testing: Radiology Impression Knee X-Ray 11/21/24 11:30 IMPRESSION: Total right knee arthroplasty in good alignment with no evidence of periprosthetic fractures. Reading Location: [place] [id number] Physical Exam Const alert, oriented x3 and no apparent distress Constitutional Narrative: Pleasant upper middle-aged male, class I obesity, sitting up comfortably in bed, conversing normally, in no acute distress. General Appearance: cooperative and comfortable HEENT normocephalic, head/scalp atraumatic, hearing grossly normal bilaterally, nasal mucous membranes and turbinates normal and moist oral mucous membranes Eyes PERRL, EOMs intact bilaterally and conjunctivae normal Neck full ROM Chest inspection of chest normal Resp normal respiratory effort, normal air movement, no use of accessory muscles and clear to auscultation bilaterally Cardio regular rate, regular rhythm, no murmurs and peripheral pulses 2+ throughout GI normal to inspection, nondistended, normoactive bowel sounds, soft to palpation, non-tender and non-distended Back/Spine normal ROM Extremity Extremity Narrative: Seymour wrap bandage in place over right knee wound, stable. Skin no rashes or lesions noted Neuro moves all extremities and no focal motor deficits Speech: speech normal Motor Exam: strength 5/5 throughout Psych mental status grossly normal Assessment & Plan Assessment/Plan (1) Postoperative infection of knee: PLAN: Plan Patient is a 64-year-old male who presented [facility] ED on 11/21/2024 with worsening right knee pain and drainage after recent right knee replacement. 1. Postoperative right knee infection after recent right total knee arthroplasty ? Orthopedic surgery following. Infectious disease consulted. And right TKA done with Dr. Humphrey 6 weeks ago. Presented with worsening right knee pain and purulent drainage coming from incisional site. Plan is for irrigation and debridement with orthopedic surgery on 11/22. Will follow-up postoperative cultures. Continue treatment with IV vancomycin and Zosyn for now. Pain control with Tylenol and oxycodone as needed. 2. Mild chronic anemia ? Hemoglobin 11.4 on admit, stable at baseline. Monitor daily CBC. 3. Type 2 diabetes mellitus ? Continue home Lantus 55 units at night and sliding scale insulin with meals while inpatient, adjust as needed. 4. Hypertension ? Held home lisinopril and chlorthalidone on 11/22 for procedure, will restart on 11/23. 5. Class I obesity ? BMI 32 on admit. Complicates hospital course, care and prognosis. DVT prophylaxis: Lovenox CODE STATUS: Full code, verified Expected disposition: Home, TBD Total clinical time spent by myself addressing the patient's medical issues, reviewing all the data, and collaborating with patient's care team: 35 minutes. Charges/Coding Visit Charges Inpatient E&M: 54394 Subs Hosp L2
--- NOTE | 2024-11-22 11:12 | CASEMGMT ---
ERICK BEAUCHAMP Assessment: Face to Face with pt for initial transition planning/care coordination assessment. ERICK BEAUCHAMP introduced self and role at [facility], pt voices understanding and consents to assessment. Pt is A&O x4 and answers all questions appropriately at this time. Pt lying in bed with nurse at bedside as well as . Care providers, pharmacy, and demographics verified/updated. Admitting Dx: R knee periprosthetic infection Strata Score: 1 PCP:[facility] Specialists:jayleen Humphrey Pharmacy: [facility] [employer] Insurance: [employer] Prescription Benefit: yes LNOK: Yudith Crockett, Living Arrangements: Pt lives with and brother in a two story home with 3 steps to enter with a rail. Pt reports he is I in ADLs/IADLs and denies concerns at home. Transportation: Pt was supposed to have been able to drive this coming Tuesday since last surgery. Pt has been transporting him. DME:[employer], cane, BGM and CGM with sufficient supplies as well as insulin HHC/SNF: Denies hx of Pt states no concerns with going home at time of dc. Pt did outpt therapy post surgery. Pt to go to OR today. No ID c/s at this time. Pt states no further concerns/needs. CM to follow. Advised pt to ask CM if any further questions/concerns/needs arise, voices understanding. Pt Goal: Home Plan: TBD pending OR and therapy evals Handoff given to MS3 ERICK Michaels RN, CM
[2024-11-22 12:13] LABS: Bedside Glucose 133 mg/dL (74-106)
[2024-11-22] MEDS: Lactated Ringers 1,000 ML 999 ML IV ×2 (12:30→17:04)
[2024-11-22] MEDS: Celecoxib 200 MG Capsule 400 MG PO (12:30)
[2024-11-22] MEDS: Acetaminophen 500 MG Tablet 1000 MG PO ×2 (12:31→21:48)
[2024-11-22] MEDS: Gabapentin 600 MG Tablet PO (12:31)
--- NOTE | 2024-11-22 13:08 | PRE.ANES_ITS ---
ASA Classification* ASA Classification ASA Classification: 2 Assessment & Plan Anesthesia* Anesthesia Assessment Anesthesia Assessment: Discussed sedation and/or anesthesia options, risks, benefits, and alternatives with patient/parents/legal guardian/POA. Questions invited. The patient/parents/legal guardian/POA seems to understand and agrees to proceed with anesthesia plan. Reviewed the physical assessment, medical history, allergy history and patient home medications list prior to surgery/procedure/anesthetic and documented any changes. Performed airway and anesthesia risk assessments. Anesthesia Type Anesthesia Type: Spinal History Source History Obtained from:: Patient and Chart Anesthesia Focused Assessment* Temperature: 98.6 F Pulse Rate: 87 Blood Pressure: 128/72 Respiratory Rate: 16 Pulse Ox: 97 Oxygen Delivery Method: Room Air Airway Assessment Mouth opens: >3 cm Mallampati Score: III Teeth Condition: Missing (Patient has several missing teeth. Rest are tight.) Neck Range of motion (ROM): Full ROM Focused Labs Anesthesia Preop lab: CBC WBC 10.9 K/mm3 (4.4-11.0) 11/22/24 05:37 11/22/24 RBC 3.98 M/mm3 (4.6-6.2) L 11/22/24 05:37 11/22/24 Hgb 11.4 g/dL (13.0-16.5) L 11/22/24 05:37 5 Hct 34.8 % (40-54) L 11/22/24 05:37 11/22/24 Plt Count 384 K/mm3 (150-450) 11/22/24 05:37 11/22/24 CHEMISTRY Potassium 4.6 mmol/L (3.3-5.1) 11/22/24 05:37 11/22/24 Sodium 133 mmol/L (133-145) 11/22/24 05:37 11/22/24 BUN 15 mg/dL (4-19) 11/22/24 05:37 11/22/24 Creatinine 1.03 mg/dL (0.70-1.20) 11/22/24 05:37 11/22/24 Glucose 199 mg/dL (70-99) H 11/22/24 05:37 11/22/24 POC Glucose 133 mg/dL (74-106) H 11/22/24 11:49 11/22/24 COAG PT 13.6 SECONDS (11.7-14.9) 11/21/24 10:57 Pre-Assessment Diagnosis/Proposed Procedure Planned Operative Procedure(s): Right knee irrigation and debridement, sinus tract excision, polyethylene exchange, revision total knee arthroplasty. Anesthesia History Anesthesia History - collection systems consultant: Anesthesia History - collection systems consultant Hx Hospitalization Any Problems With Anesthesia No 11/21/24 20:08 Cholinesterase deficiency No 11/21/24 20:08 You/Your Family Experience No 11/21/24 20:08 fever (hyperthermia) with Relationship Recent Exposure to Contagious No 11/21/24 20:08 Disease Does patient have nerve No 11/21/24 20:08 stimulator Patient instructed to have No 11/21/24 20:08 device shut off --Does patient have Pacemaker or ICD? When Was Last Pacemaker Check QUESTION #4 FULL TEXT: You/Your Family Experience fever (hyperthermia) with Anesthesia Last Oral Intake Last Oral intake: Last Oral Intake NPO since Meds taken in AM with sips of water? Meds patient instructed to take am of surgery Any additional information?: Yes NPO since: 00:00 Meds taken in AM with sips of water?: No PONV PONV - collection systems consultant: PONV - collection systems consultant Female HX of Motion Sickness HX of N/V After Surgery Non-Smoker Duration of Surgery greater than 60 minutes Number of Risk Factors PONV Score Height & Weight Height & Weight: Anesthesia: Height & Weight Height 5 ft 10.87 in 11/21/24 17:29 Weight: 103.7 kg 11/21/24 17:29 Body Mass Index (BMI) 32.0 11/21/24 17:29 Respiratory Assessment Respiratory Assessment - collection systems consultant: Respiratory Tract Infection Hx - collection systems consultant Hx Respiratory Tract Infection No 11/21/24 20:08 STOP Sleep Apnea STOP Sleep Apnea - collection systems consultant: STOP Sleep Apnea - collection systems consultant Hx Hypertension No 11/21/24 17:29 Hx Sleep Apnea No 11/21/24 17:29 CPAP BIPAP Do you snore loudly (louder No 11/21/24 17:29 than talking or can be heard Do you often feel tired/ No 11/21/24 17:29 fatigued/ sleepy during daytime? Has anyone observed you stop No 11/21/24 17:29 breathing during sleep? STOP Results Negative 11/21/24 17:29 QUESTION #5 FULL TEXT : Do you snore loudly (louder than talking or can be heard through closed doors)? Tobacco Use History Tobacco Use History - collection systems consultant: Tobacco Use History - collection systems consultant Tobacco Use Smoking Status Never smoker 11/21/24 17:29 Hx Tobacco Use No 11/21/24 17:29 Years Smoking Packs Smoked per Day Smoking Cessation Date was within the last 15 years Hx Smoking Cessation Date Hx Smoking Cessation Counseling Hematologic Medial History Hematologic Hx - collection systems consultant: Hematologic Medical Hx - nurse advocate Hx of Blood Transfusion No 11/21/24 17:29 Hx of Transfusion in last 3 No 11/21/24 17:29 Months Date of Last Transfusion (if within last 3 months) Ever experience any problems No 11/21/24 17:29 with transfusion(s)? Specify any problems Hx of Preganancy in last 3 N/A 11/21/24 17:29 Months Nurse Filling Out Transfusion JDIAL 11/21/24 17:29 & Questions: Date: 11/21/24 11/21/24 17:29 Time: 17:35 11/21/24 17:29 Patient unable to answer at this time (ie. confused, unrespo /Reproduction History /Reproductive History - collection systems consultant: /Reproductive Hx- collection systems consultant Hx Now Gestational Age (in weeks): EDC: Hx Hx Para Hx Section SAB Active Medications Active Medications: Current Medications Generic Name Dose Route Start Last Admin Trade Name Freq PRN Reason Stop Dose Admin Acetaminophen 650 mg 11/21/24 15:31 11/21/24 20:01 Acetaminophen 325 Mg Tablet PO 650 mg Q6H PRN PRN Administration Pain 1-10 Or Fever >100.7 Acetaminophen 1,000 mg 11/22/24 14:00 11/22/24 12:31 Acetaminophen 500 Mg Tablet PO 11/22/24 14:01 1,000 mg X1 ONE Administration Celecoxib 400 mg 11/22/24 14:00 11/22/24 12:30 Celecoxib 200 Mg Capsule PO 11/22/24 14:01 400 mg X1 ONE Administration Chlorthalidone 25 mg 11/22/24 10:00 Chlorthalidone 50 Mg Tablet PO DAILY CHERYL Sodium Chloride 77.4 ml/ 0 ml 11/22/24 14:00 Ropivacaine 200 mg/ OPERA.SITE 11/22/24 14:01 Epinephrine HCl 0.6 mg/ X1 ONE Ketorolac Tromethamine 30 mg/ Morphine Sulfate 5 mg Dexamethasone Sodium Phosphate 10 mg 11/22/24 14:00 Dexamethasone 10 Mg/Ml Vial IV 11/22/24 14:01 X1 ONE Diclofenac Sodium 50 mg 11/22/24 22:00 Diclofenac 50 Mg Tablet PO Q12 CHERYL Enoxaparin Sodium 40 mg 11/22/24 10:00 Enoxaparin 40 Mg/0.4 Ml Syringe SC DAILY CHERYL Gabapentin 600 mg 11/22/24 14:00 11/22/24 12:31 Gabapentin 600 Mg Tablet PO 11/22/24 14:01 600 mg X1 ONE Administration Glucagon 1 mg 11/21/24 15:31 Glucagon 1 Mg/Ml Syringe IM X1 PRN HYPOGLYCEMIA Protocol Dextrose 250 mls @ 0 mls/hr 11/21/24 15:31 Dextrose 10%-Water IV .Q0M PRN HYPOGLYCEMIA Protocol As Directed Vancomycin IV-PHARMACY TO DOSE 500 mls @ 250 mls/hr 11/21/24 15:31 1 each/ Sodium Chloride IV X1 PRN Rx to Dose Protocol Piperacillin Sod/Tazobactam 50 mls @ 12.5 mls/hr 11/21/24 22:00 11/22/24 12:32 Sod 3.375 gm/ Sodium Chloride IV Infused Q8 CHERYL Infusion Lactated Ringer's 1,000 mls @ 999 mls/hr 11/22/24 14:00 11/22/24 12:30 IV 11/22/24 15:00 999 mls/hr .Q1H1M CHERYL Administration Cefazolin Sodium 2 gm/ N/A 20 mls @ 400 mls/hr 11/22/24 14:00 IV 11/22/24 14:02 PREOP ONE Tranexamic Acid 1,000 mg/ 110 mls @ 660 mls/hr 11/22/24 14:00 Sodium Chloride IV 11/22/24 14:09 X1 ONE Tranexamic Acid 1,000 mg/ 110 mls @ 660 mls/hr 11/22/24 14:00 Sodium Chloride IV 11/22/24 14:09 X1 ONE Lactated Ringer's 1,000 mls @ 999 mls/hr 11/22/24 14:00 IV 11/22/24 15:00 .Q1H1M CHERYL Lactated Ringer's 1,000 mls @ 125 mls/hr 11/22/24 14:00 IV 11/22/24 21:59 .Q8H CHERYL Lactated Ringer's 1,000 mls @ 75 mls/hr 11/22/24 14:00 IV 11/23/24 03:19 .[id number] CHERYL Vancomycin HCl 2,000 mg/ 540 mls @ 250 mls/hr 11/22/24 01:00 11/22/24 04:50 Sodium Chloride IV Infused Q12H CHERYL Infusion Insulin Glargine 55 unit 11/21/24 22:00 11/21/24 21:41 Insulin Glargine-Yfgn 100 Unit/Ml Pen SC 55 unit QHS CHERYL Administration Insulin Human Lispro 0 unit 11/21/24 16:00 11/22/24 06:50 Insulin Lispro 100 Unit/Ml Insuln.Pen SC 4 units ACHS CHERYL Administration Protocol Lisinopril 20 mg 11/21/24 22:00 11/21/24 21:18 Lisinopril 20 Mg Tablet PO 20 mg BID CHERYL Administration Protocol Morphine Sulfate 2 - 4 mg 11/21/24 15:31 Morphine 2 Mg/Ml Syringe IV Q3H PRN PRN Pain Score 6-10 Ondansetron HCl 4 mg 11/21/24 15:31 Ondansetron 4 Mg/2 Ml Vial IV Q8H PRN PRN NAUSEA/VOMITING Oxycodone HCl 5 mg 11/21/24 15:31 11/21/24 21:18 Oxycodone 5 Mg Tablet PO 5 mg Q4H PRN PRN Administration Pain Score 4-10 Sodium Chloride 10 - 40 ml 11/21/24 17:40 0.9% Saline Lock 10 Ml Syringe IV UD PRN SALINE FLUSH Vancomycin HCl 1,000 mg 11/22/24 14:00 Vancomycin Iv 1,000 Mg/20 Ml Vial OPERA.SITE 11/22/24 14:01 X1 ONE Vancomycin Protocol 1 lab 11/22/24 22:30 Vancomycin Trough/Random Due MC 11/23/24 02:30 DAILY [facility] PFSH Home Medications ?Medication ?Instructions ?Recorded ?Last Taken ?Type chlorthalidone 25 mg tablet 25 mg PO DAILY BP 11/21/24 11/20/24 10:00 History 25 mg diclofenac sodium 50 mg 50 mg PO Q12H pain 11/21/24 11/20/24 22:00 History tablet,delayed release 50 mg doxycycline monohydrate 100 mg 100 mg PO Q12H ATB 02/1011/20/24 22:00 History capsule 100 mg insulin glargine 100 unit/mL (3 55 unit subcut QHS blo od sugar 11/21/24 11/20/24 22:00 History mL) subcutaneous pen (Lantus 55 units Solostar U-100 Insulin) insulin lispro 100 unit/mL 1 sliding scale dose subcut 11/21/24 11/20/24 17:00 History subcutaneous pen .COMPLEX blood sugar 30 lisinopril 20 mg tablet 20 mg PO BID BP 11/21/2401/11 22:00 History 20 mg Allergy/AdvReac Type Severity Reaction Status Date / Time No Known Allergies Allergy Verified 11/21/24 09:47 Surgical History (Updated 11/22/24 @ 13:[address] Cesar Ray MD) H/O hernia repair Total knee replacement status Social History Smoking Status: Never smoker Review of Systems (Anesthesia) ROS Narrative System reviewed and no additional complaints, except as documented.
[2024-11-22] MEDS: dexAMETHasone 10 MG/ML Vial IV (14:00)
[2024-11-22] MEDS: Cefazolin 2 GM in Syringe 10 ML IV (14:00)
--- NOTE | 2024-11-22 14:00 | SOF_PTH ---
PATIENT: JACQUES MALONEY LOC: MS3 U#:[id number] AGE/SX: 64/M ROOM: [facility] RE11/21/[address]: Dr. Price Harris DO : 1960 BED: 1 DIS: 11/27/2024 SPEC #: [id number] RECD: 11/23/24 09:39 STATUS: ROMINA REMariela #: [id number] RONALDO: 11/22/24 14:[address]: Albert Humphrey DEPT: SURGICAL PATHOLOGY RECD BY: Michael Ge ENTERED: 11/23/24 09:40 SP TYPE: SOFT TISS OTHR DR: DO Dr. Jose Centeno DO Dr. Nana Yaa Koram, MD Dr. Robert Leininger, MD Tissues: Knee, NOS Procedures: Surgery Specimen Level IV HEADER OPERATION: Irrigation and debridement, sinus tract excision PRE-OP DIAGNOSIS: Postoperative infection of knee TISSUE SUBMITTED: Sinus tract right knee MICROSCOPIC DIAGNOSIS Right knee, sinus tract, excision: * Cutaneous ulcer with full-thickness defect lined by granulation tissue, consistent with sinus tract. 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 * Scattered minute ectopic bone fragments. MICROSCOPIC DESCRIPTION Slides are reviewed. GROSS DESCRIPTION Received in formalin labeled, Jacques Maloney, and designated sinus tract right knee, is an unoriented ellipse of skin that measures 4.7 x 1.2 cm and is excised to a depth of 1.0 cm. Central on the skin is and elongated apparent skin scar/incision that measures 3.6 cm in total length. Central to the incision is a 1.1 cm area of ulceration. Remaining skin is floyd-merchant and wrinkled. The opposing margin tips are inked blue, and the remaining central margin is inked black. Sectioning shows red-brown hemorrhagic soft tissue and fibrous tissue deep to the ulcer. Refrigerator Crater sections to include two opposing tips and three central sections are submitted in one cassette.. 11/23/2024 CPT:65576
[2024-11-22] MEDS: TRANEXAMIC ACID 2,000 MG, 0.9% Normal Saline (100mL Bag) 100 ML OPERA.SITE (14:42)
--- NOTE | 2024-11-22 15:02 | OP.PCM_ITS ---
Operative Report (Standard) Operative Information Date of Procedure: 11/22/24 Pre-Operative Diagnosis: Acute postoperative right periprosthetic joint infection Post-Operative Diagnosis: Acute postoperative right periprosthetic joint infection Surgery/Procedure Performed: Irrigation debridement, complete synovectomy, sinus tract excision with polyethylene exchange revision right total knee non destructive testing specialist: Yes Tube Washer: Luke Cruz Tasks completed by first line supervisor: Other (See body of operative report) Additional assistant laboratory director?: No Type of Anesthesia: Spinal RN Documented Start/Stop Times: Operation Date: 11/22/24 14:00 Case Time Into Pre-Op 11/22/24 12:13 Anesthesia Start 11/22/24 13:55 Into Room 11/22/24 13:55 Procedure Start 11/22/24 14:22 Procedure End 11/22/24 16:29 Anesthesia End 11/22/24 16:37 Into Recovery 11/22/24 16:37 Out of Room 11/22/24 16:37 Procedure Start Time: 14:22 Procedure Stop Time: 16:29 Select all DRAINS/GRAFTS/IMPLANTS that apply: Prosthetic device Prosthetic device details: [place] triathlon X3 size 6 x 9 mm polyethylene Special Medications: Vancomycin and Ancef Estimated Blood Loss: 200 mL Fluids Replaced: 1400 mL crystalloid Specimen collected: Yes Description of specimen(s) removed: 3 separate specimens were sent to the Description of surgery: 64yo male history of right TKA in September 2024 presents with acute drainage beginning 48 hours ago on the right knee incision distally medial MSIS major criteria for periprosthetic joint infection after uneventful recent. Reviewed options were discussed the patient. Based on acuity of the symptoms and organism irrigation debridement with polyethylene exchange is recommended. Ri sks and benefits of the procedure were discussed with the patient including but not limited to blood loss, DVTs, PEs, neurovascular damage, infection, general risk of anesthesia including loss of life. Demonstrated understanding and was able to sign informed consent. On the date of procedure patient's R lower extremity was marked in the preoperative area. The patient was then taken back to the operating room where the patient was placed on the table in the supine position. All bony prominences were identified a well-padded. Anesthesia assumed control of the C-spine and airway and remained controlled throughout the remainder of the procedure. A tourniquet was placed on the operative thigh and the leg was prepped in a sterile fashion. The surgeon then scrubbed at this time .Upon reentering the room left lower extremity was draped in a standard orthopedic fashion. A timeout was then called and everyone agreed upon the side, the site, the procedure to be performed, patient's identity and antibiotics given. A midline skin incision was made and sharp dissection was taken down through skin subcutaneous tissue and fat. Appropriate flaps were elevated medially and laterally. His arthrotomy was identified and the standard medial parapatellar incision was made and the patella was subluxed laterally. The standard deep MCL release was done. At this point an aggressive synovectomy commenced. Our attention was first turned towards the subpatellar pouch and all suspicious synovium and tissues were debrided. We then directed our attention towards medial lateral gutters were these tissues were aggressively debrided. Knee was then flexed up the polyethylene was removed. Once polyethylene was removed we did the remainder of the synovium in the medial and lateral gutters and along the lateral structures and MCL. We then debrided the posterior knee. Knee was flexed up and culture was taken from the femoral notch. And also there was a membrane beneath the tibial baseplate that was removed and sent for culture. He had completed our synovectomy and were happy with the joint. We then used a chlorahexadine scrub sponge and physically scrub the metal implants using a scrub sponge but nothing abrasive. We also scrubbed the remainder of the wound with chlorhexidine. 6 L of normal saline were then irrigated throughout the wound with low-pressure lavage and the wound was once again explored. All remaining tissue that was suspicious was seen in the wound was once again irrigated with normal saline. 9 mm polyethylene was then opened and put back into place after appropriate trialing. Tourniquet was let down and hemostasis was obtained as well as possible. Lateral drain was placed in 1 g of vancomycin powder were placed in the wound/joint. Once the final components were placed the wound was copiously irrigated with normal saline solution. The wound was closed in a layer freed fashion using #1 vicryl interrupted sutures for the arthrotomy with a #1 strata fix proximally. Distally there was a 2 cm x 3 cm area of tissue defect over the proximal tibia on the distal portion of the arthrotomy. 2-0 interrupted Vicryl for the subcuticular layer proximally and distally we did use #2 running barbed suture for the subcuticular layer. 2-0 nylon sutures in a interrupted mattress fashion were used for final skin closure. A sterile Prevena wound VAC dressing was then placed. The patient was then awakened from anesthesia, transferred to the [facility] and transferred to the PACU for recovery. Post op plan Patient will be weightbearing as tolerated in knee immobilizer. No knee flexion for the first 2 weeks as we allow incisional rest. Primary service currently as patient on enoxaparin. Okay to continue enoxaparin as inpatient recommend aspirin 81 mg p.o. twice daily for total of 4 weeks on discharge if patient adequately mobilized. Maintain wound VAC for 1 week postop. Follow-up in office for 2-week postoperative visit. Consult infectious disease for antibiotic management. My physician assistant laboratory director was a vital part of this case, they was important because there was not another skilled set of hands available to their training and aptitude needed for safe and appropriate completion of this case. They were important in appropriate retraction during the case, and protection of soft tissues during bony cuts. In particular the experience and skill of this assistant laboratory director made for safe retraction and exposure during implantation of medical implants without damage or fracture to vital soft tissues or structures. His intimate knowledge of the case and my steps aided in safe and expedient completion of the procedure as well as appropriate position of the leg during the case. He was also vital in assisting with closure and placement of the dressing under my direct supervision. Surgical Findings: Patient had purulent drainage from sinus tract which tracked down into the joint through small areas of defect in the retinaculum. There is a small area of distal retinacular edema that over the medial tibia. Complications Complications: No Admit VTE Documentation VTE Present on Admission: No VTE Mechan Device Prophylaxis: SCD's and Thigh High TAWANA Hose VTE Pharm Prophylaxis ordered?: Yes
[2024-11-22] MEDS: Vancomycin IV 1,000 MG/20 ML Vial 1000 MG OPERA.SITE (15:30)
--- NOTE | 2024-11-22 16:40 | PCM.POST.ANE ---
Anesthesia: Postop Eval I Current Vital Signs Temperature: 96.3 F Pulse Rate: 73 Blood Pressure: 108/64 Respiratory Rate: 18 Pulse Ox: 97 Assessment Airway patent: Yes Spontaneous unlabored respirations: Yes nausea: No Vomiting: No Anesthesia Complication: No Fluid Hydration Crystalloid volume administer (ml): 1,400 Total IV fluid infused: 1,400 Progress Note Anesthesia document: Postop Eval 1 completed: Yes
[2024-11-22] MEDS: oxyCODONE 5 MG Tablet PO (18:13)
[2024-11-22 19:07] LABS: Bedside Glucose 162 mg/dL (74-106)
[2024-11-22] MEDS: Morphine 2 MG/ML Syringe IV (20:01)
[2024-11-22] MEDS: Insulin Glargine-YFGN 100 UNIT/ML Pen 55 UNIT SC (21:47)
--- NOTE | 2024-11-22 21:58 | POSTOPAN2_ITS ---
Anesthesia Postop Eval I Sum Postop Eval Completion status Anesthesia document: Postop Eval 1 completed: Yes Anesthesia Postop Eval I Summary Anesthesia Postop Eval I Summary: Anesthesia Postop Eval I: Assessment Summary Airway patent Yes 11/22/24 16:40 ACCOUNT CONSULTANT.CSIR Spontaneous unlabored Yes 11/22/24 16:40 ACCOUNT CONSULTANT.CSIR respirations Mental status nausea No 11/22/24 16:40 ACCOUNT CONSULTANT.CSIR Vomiting No 11/22/24 16:40 ACCOUNT CONSULTANT.CSIR Anesthesia Postop Eval I: Fluid Summary Crystalloid volume administer 1,400 11/22/24 16:40 ACCOUNT CONSULTANT.CSIR (ml) Colloids volume administered ( ml) Blood Product volume administered (ml) Total IV fluid infused 1,400 11/22/24 16:40 ACCOUNT CONSULTANT.CSIR Anesthesia Postop Eval I: Summary Notes Anesthesia Complication No 11/22/24 16:40 ACCOUNT CONSULTANT.CSIR Anesthesia Complication Comment: Post-operative progress note Anesthesia: Postop Eval II Evaluation Mental status: Awake and Calm Pain Level: 2 nausea: No Vomiting: No Complications Anesthesia Complication: No
--- NOTE | 2024-11-22 21:58 | PCM.POSTANE2 ---
Anesthesia Postop Eval I Sum Postop Eval Completion status Anesthesia document: Postop Eval 1 completed: Yes Anesthesia Postop Eval I Summary Anesthesia Postop Eval I Summary: Anesthesia Postop Eval I: Assessment Summary Airway patent Yes 11/22/24 16:40 RECORDING ENGINEER.CSIR Spontaneous unlabored Yes 11/22/24 16:40 RECORDING ENGINEER.CSIR respirations Mental status nausea No 11/22/24 16:40 RECORDING ENGINEER.CSIR Vomiting No 11/22/24 16:40 RECORDING ENGINEER.CSIR Anesthesia Postop Eval I: Fluid Summary Crystalloid volume administer 1,400 11/22/24 16:40 RECORDING ENGINEER.CSIR (ml) Colloids volume administered ( ml) Blood Product volume administered (ml) Total IV fluid infused 1,400 11/22/24 16:40 RECORDING ENGINEER.CSIR Anesthesia Postop Eval I: Summary Notes Anesthesia Complication No 11/22/24 16:40 RECORDING ENGINEER.CSIR Anesthesia Complication Comment: Post-operative progress note Anesthesia: Postop Eval II Evaluation Mental status: Awake and Calm Pain Level: 2 nausea: No Vomiting: No Complications Anesthesia Complication: No
[2024-11-22] MEDS: 0.9% Saline Lock 10 ML Syringe IV (23:09)
[2024-11-22 23:30] LABS: Bedside Glucose 306 mg/dL (74-106)
[2024-11-23] MEDS: Acetaminophen 325 MG Tablet 650 MG PO (00:09)
[2024-11-23] MEDS: oxyCODONE 5 MG Tablet PO ×2 (00:09→10:18)
[2024-11-23 01:10] LABS: Vancomycin, Trough Level 18.5 ug/mL (5.0-15.0)
--- NOTE | 2024-11-23 01:21 | PCM.RX.CS ---
Consult Antibiotic Management Pharmacy has been consulted to manage selected antibiotic: Vancomycin Type of Intervention Type of Consult: Follow-up Labs Labs: Sodium 133 mmol/L (133-145) 11/22/24 05:37 Potassium 4.6 mmol/L (3.3-5.1) 11/22/24 05:37 Chloride 97 mmol/L (98-108) L 11/22/24 05:37 Carbon Dioxide 25.0 mmol/L (21.0-32.0) 11/22/24 05:37 Anion Gap 11 (5-15) 11/22/24 05:37 BUN 15 mg/dL (4-19) 11/22/24 05:37 Creatinine 1.03 mg/dL (0.70-1.20) 11/22/24 05:37 Est GFR (MDRD) Non-Af 82 (>60) 11/22/24 05:37 BUN/Creatinine Ratio 14.5 RATIO (10-20) 11/22/24 05:37 Glucose 199 mg/dL (70-99) H 11/22/24 05:37 Vancomycin Trough 18.5 ug/mL (5.0-15.0) H 11/23/24 00:35 Microbiology Microbiology: Microbiology 11/21/24 11:05 Wound - Knee Gram Stain - Final 11/21/24 11:05 Wound - Knee Wound Culture - Preliminary No growth-Final to follow Goal Trough Goal Trough: 15-20 mcg/mL Pharmacy Plan for Drug Dosing Pharmacy Plan for Drug Dosing: Pharmacy Service will continue to monitor and adjust dosing as required. TROUGH 18.5 @ 10.5 HOURS. NO CHANGES, FOLLOW UP TROUGH IN 2 DAYS Follow-Up Labs Follow-Up Labs: Trough: Vancomycin Date/Time Labs Ordered Labs to be done on [date and time ordered]: 11/25 @ 0030
[2024-11-23] MEDS: Vancomycin HCl 2,000 MG in 0.9% Normal Saline (500mL Bag) 500 ML 250 MG IV ×2 (01:41→13:14)
[2024-11-23] MEDS: 0.9% Normal Saline (100mL Bag) 100 ML 15 ML IV (01:42)
[2024-11-23] MEDS: 0.9% Saline Lock 10 ML Syringe IV ×2 (01:43→13:14)
[2024-11-23] MEDS: Morphine 2 MG/ML Syringe IV (01:53)
--- NOTE | 2024-11-23 01:54 | PCM.HOSP.N ---
Hospitalist Note BS 315, patient requesting coverage with ISS, will dose with 10 u SC x 1.
[2024-11-23 02:03] VITALS: BP 137/73; PULSE 94; RESP 16; TEMP 36.9; O2SAT 94; BMI 32.0
[2024-11-23] MEDS: Insulin Lispro 100 UNIT/ML INSULN.PEN 10 UNIT SC (02:21)
[2024-11-23 06:03] VITALS: BP 142/67; PULSE 82; RESP 16; TEMP 36.6; O2SAT 95; BMI 32.0
[2024-11-23] MEDS: Insulin Lispro 100 UNIT/ML INSULN.PEN SC ×3 (06:16→16:37)
[2024-11-23] MEDS: Piperacil/Tazobactam 3.375 GM in 0.9% Normal Saline (50mL MB+) 50 ML IV ×3 (06:16→21:04)
[2024-11-23] MEDS: Acetaminophen 500 MG Tablet 1000 MG PO ×3 (06:18→21:03)
[2024-11-23 06:45] LABS: Bedside Glucose 236 mg/dL (74-106)
[2024-11-23 06:55] LABS: Absolute Lymphocyte Count 1.71 X10^3/uL (0.83-4.51); Absolute Neutrophil Count 10.2 X10^3/uL (2.0-7.7); Basophil# 0.05 X10^3/uL; Basophil% 0.4 % (0-1); Eosinophils% 0.8 % (0-5); Hematocrit 33.9 % (40-54); Hemoglobin 11.1 g/dL (13.0-16.5); Lymphocyte # 1.71 X10^3/ul (0.83-4.51); Lymphocyte % 13.1 % (19-41); Mean Corp Hgb Conc 32.7 g/dL (32-36); Mean Corpuscular Hgb 28.8 pg (27.0-32.0); Mean Corpuscular Volume 87.8 fL (80-94); Mean Platelet Vol. 10.3 fl (6.2-12.0); Monocyte# 0.97 X10^3/uL; Monocyte% 7.4 % (0-10); NRBC Flagged by Analyzer 0 % (0-5); Neutrophil % 77.8 % (47-70); Platelet Count 416 K/mm3 (150-450); RBC Distribution Width CV 12.8 % (11.6-14.6); RBC Distribution Width SD 41.2 fl (35.1-43.9); Red Blood Count 3.86 M/mm3 (4.6-6.2); White Blood Count 13.1 K/mm3 (4.4-11.0)
--- NOTE | 2024-11-23 07:03 | PCM.PN.ORT ---
Subjective Subjective The patient was sitting in bed upon examination. Patient denies any chest pain, shortness of breath, dizziness, lightheadedness, nausea or vomiting, or calf pain. Pain is controlled on medications. No adverse overnight events. Patient is overall doing well today. Patient did get emotional about not knowing what he did to get this infection. Patient's only risk factor was his diabetes but states it was overall controlled until recently. Patient is currently in a knee immobilizer with no flexion of the right knee. Hemovac drain in place in which 10 mL was removed overnight. Patient currently denies any numbness and tingling. We are awaiting on intraoperative microbiology specimen results. Blood culture and wound culture are pending. Objective Data Objective Data Vital Signs: Vital Signs Temp Pulse Resp BP Pulse Ox O2 Del Method 98 F 82 16 142/67 H 95 Room Air 11/23/24 06:03 11/23/24 06:03 11/23/24 06:03 11/23/24 06:03 11/23/24 06:03 11/23/24 06:03 Oxygen Delivery Method Room Air Weight: 103.7 kg Body Mass Index (BMI) 32.0 Intake & Output: Intake and Output for Last 24 Hours 11/21/24 11/22/24 11/23/24 23:59 23:59 23:59 Intake Total 580 / 580 3647.08 / 3647.08 590.75 / 590.75 Output Total 475 / 475 2710 / 2710 1650 / 1650 Balance 105 / 105 937.08 / 937.08 -1059.25 / -1059.25 Lab / Micro Data 11/23/24 05:56 11/22/24 05:37 Labs: Laboratory Results - last 24 hr 11/22/24 05:37: WBC 10.9, RBC 3.98 L, Hgb 11.4 L, Hct 34.8 L, MCV 87.4, MCH 28.6, MCHC 32.8, RDW Std Deviation 42.2, RDW Coeff of Primo 13.2, Plt Count 384, MPV 9.8, Immature Gran % (Auto) 0.500, Neut % (Auto) 70.4 H, Lymph % (Auto) 17.8 L, [place] % (Auto) 9.1, Eos % (Auto) 1.8, Baso % (Auto) 0.4, Absolute Neuts (auto) 7.7, Absolute Lymphs (auto) 1.95, Nucleated RBC % 0, Hemoglobin A1c 6.7 11/22/24 06:45: POC Glucose 204 H 11/22/24 11:49: POC Glucose 133 H 11/22/24 18:24: POC Glucose 162 H 11/22/24 21:45: POC Glucose 306 H 11/23/24 00:35: Vancomycin Trough 18.5 H 11/23/24 05:56: WBC 13.1 H, RBC 3.86 L, Hgb 11.1 L, Hct 33.9 L, MCV 87.8, MCH 28.8, MCHC 32.7, RDW Std Deviation 41.2, RDW Coeff of Primo 12.8, Plt Count 416, MPV 10.3, Immature Gran % (Auto) 0.500, Neut % (Auto) 77.8 H, Lymph % (Auto) 13.1 L, [place] % (Auto) 7.4, Eos % (Auto) 0.8, Baso % (Auto) 0.4, Absolute Neuts (auto) 10.2 H, Absolute Lymphs (auto) 1.71, Nucleated RBC % 0 11/23/24 06:14: POC Glucose 236 H Micro: Microbiology 11/21/24 11:05 Wound - Knee Gram Stain - Final 11/21/24 11:05 Wound - Knee Wound Culture - Preliminary No growth-Final to follow Physical Exam Narrative Vital signs stable and afebrile. Patient is able to plantarflex and dorsiflex actively. Sensation is intact to light touch to saphenous, sural, superficial and deep peroneal, and tibial distribution. Knee immobilizer in place Incisional wound VAC in place with no output in canister or tubing Hemovac drain in place with output in canister. Negative Homans bilaterally, negative signs and symptoms of DVT. Const alert, oriented x3 and no apparent distress Assessment & Plan Assessment/Plan (1) Postoperative infection of knee: PLAN: 1. S/P irrigation debridement with complete synovectomy, sinus tract excision and polyethylene exchange revision right total knee arthroplasty POD #1 2. Continue Pain Medications: Tylenol and oxycodone 3. DVT Prophylaxis: Currently on Lovenox in the hospital. Recommend upon discharge aspirin 81 mg twice daily for 4 weeks postoperatively. Patient denies past history of DVT or pulmonary embolism 4. PT/OT: Weightbearing as tolerated with walker. Patient must remain in the immobilizer and no flexion of the knee for 2 weeks for incision rest 5. H & H: 11.1/33.9, asymptomatic. Monitoring patient's hemoglobin and hematocrit with postoperative anemia without any intra operative complications. At this time no treatment is required. Yesterday hemoglobin 11.4. BMP results are still pending 6. Reactive leukocytosis: 13.1, Afebrile. Patient did receive Decadron intraoperatively. Patient currently with postoperative right knee infection and diabetes 7. Infectious disease consultation: Patient is currently on vancomycin and Zosyn. Microbiology specimens intraoperatively are pending. Wound culture and blood culture pending. Appreciate recommendations from infectious disease for discharge planning. 8. Prevena incisional wound VAC: Continue with incisional wound VAC for 1 week postoperatively with removal on November 30, 2024. While incisional wound VAC is on this should not get wet. Patient voiced understanding. 8. Hemovac drain: Continue with the Hemovac drain for a minimum of 48 hours depending upon output. Patient has had 10 mL removed overnight. Will continue to monitor output. 9. Encouraged Incentive Spirometry 10. Patient is aware of postoperative constipation that can occur from 1-3 days postoperatively. Will continue with senna 2 tablets twice daily until first bowel movement. Patient was advised if not having a bowel movement after day 3 she is to contact orthopedics so appropriate change can be made. Patient voiced understanding. 11. Continue postoperative medical treatment per medicine 12. Disposition: Due to infection we are needing to wait on final cultures for determination of antibiotics. Anticipate patient requiring IV antibiotics for 6 weeks postoperatively. Appreciate recommendations from infectious disease. I did briefly discuss this with the patient and did explain to him that we will most likely not have results until Tuesday. Care management team will be involved as far as discharge planning. We discussed the possibility of discharge home versus home health. Patient is wanting to go home if possible. He will continue on current pain regimen. Continue with physical therapy weightbearing as tolerated with knee immobilizer in place. No flexion of the knee for 2 weeks postoperatively. Plan will be for removal of the Hemovac drain when appropriate after a minimum of 48 hours. Continue with the Prevena incisional wound VAC for 1 week postoperatively. Patient had many questions today and I did try to answer them to the best of my ability. Patient had some frustration of why he was infected. I have reviewed the [place] Automated Rx Reporting System (OARRS) report for this patient for refill pattern and other prescriber involvement as part of the appropriate surveillance for the provision of acute and chronic controlled medications. The report was requested and reviewed on the date of this entry and was considered in the prescribing process. This dictation was created using voice recognition software. Phonetic and/or grammatical errors may exist.
[2024-11-23 07:31] LABS: Anion Gap 13 (5-15); BUN 18 mg/dL (4-19); BUN/Creat Ratio 15.1 RATIO (10-20); Calcium,Total 8.9 mg/dL (7.6-11.0); Carbon Dioxide 23.3 mmol/L (21.0-32.0); Chloride 98 mmol/L (98-108); Creatinine, Serum 1.16 mg/dL (0.70-1.20); EST Glomerular Filtration Rate 71 (>60); Estimated Creatinine Clearance 78.62 ml/min (50-250); Glucose 247 mg/dL (70-99); Potassium 4.5 mmol/L (3.3-5.1); Sodium Level 134 mmol/L (133-145)
[2024-11-23 08:24] VITALS: BP 134/72; PULSE 84; RESP 18; TEMP 36.5; O2SAT 100
[2024-11-23 08:39] VITALS: BMI 32.0
[2024-11-23] MEDS: Chlorthalidone 50 MG Tablet 25 MG PO (08:46)
[2024-11-23] MEDS: Enoxaparin 40 MG/0.4 ML Syringe SC (08:47)
[2024-11-23] MEDS: Lisinopril 20 MG Tablet PO ×2 (10:18→21:04)
--- NOTE | 2024-11-23 11:00 | CON.PCM.ID_ITS ---
Assessment & Plan Assessment/Plan (1) Infection of prosthetic right knee joint: PLAN: Now s/p OR 11/22/[address] Humphrey for I&D with complete synovectomy, sinus tract excision, and poly exchange. Initial knee replacement 10/11/24 at [place]. Surg cx pending, cont empiric vanc/zosyn. Plan on picc and 6 weeks iv abx at discharge. Will follow, thank you HPI Consult Data Date of Consult: 11/23/24 HPI Narrative Reason for Consultation: PJI HPI Narrative: JACQUES MALONEY, is a 64 M who had R total knee replacement 10/11/[address] Humphrey at [place], did well postop, incision healed. About 2 weeks ago, had some increased pain with PT. Over past 5 days, progressive pain with focal redness and swelling. No fever or chills. I&D attempted, then spontaneous drainage of pus and blood, came to ED 11/21. Taken to OR 11/22, now feeling better. Full ROS performed and neg except as noted above. PFSH Home Medications ?Medication ?Instructions ?Recorded ?Last Taken ?Type chlorthalidone 25 mg tablet 25 mg PO DAILY BP 11/21/24 11/20/24 10:00 History 25 mg diclofenac sodium 50 mg 50 mg PO Q12H pain 11/21/24 11/20/24 22:00 History tablet,delayed release 50 mg doxycycline monohydrate 100 mg 100 mg PO Q12H ATB 02/1011/20/24 22:00 History capsule 100 mg insulin glargine 100 unit/mL (3 55 unit subcut QHS blo od sugar 11/21/24 11/20/24 22:00 History mL) subcutaneous pen (Lantus 55 units Solostar U-100 Insulin) insulin lispro 100 unit/mL 1 sliding scale dose subcut 11/21/24 11/20/24 17:00 History subcutaneous pen .COMPLEX blood sugar 30 lisinopril 20 mg tablet 20 mg PO BID BP 11/21/2401/11 22:00 History 20 mg Allergy/AdvReac Type Severity Reaction Status Date / Time No Known Allergies Allergy Verified 11/21/24 09:47 Surgical History (Updated 11/22/24 @ 13:[address] Cesar Ray MD) H/O hernia repair Total knee replacement status Social History Smoking Status: Never smoker Physical Exam Const alert, oriented x3 and no apparent distress General Appearance: cooperative HEENT normocephalic and head/scalp atraumatic Eyes PERRL and EOMs intact bilaterally Neck supple and No nodes Resp normal air movement and clear to auscultation bilaterally Cardio regular rate and regular rhythm GI soft to palpation, non-tender and non-distended Extremity General Extremity: edema Skin Skin Narrative: RLE wrapped Neuro CN's II-XII intact bilaterally Lab / Micro Data Attestation: I reviewed the patient's lab results. 11/23/24 05:56 11/23/24 05:56 Labs: Laboratory Results - last 24 hr 11/22/24 11:49: POC Glucose 133 H 11/22/24 18:24: POC Glucose 162 H 11/22/24 21:45: POC Glucose 306 H 11/23/24 00:35: Vancomycin Trough 18.5 H 11/23/24 05:56: WBC 13.1 H, RBC 3.86 L, Hgb 11.1 L, Hct 33.9 L, MCV 87.8, MCH 28.8, MCHC 32.7, RDW Std Deviation 41.2, RDW Coeff of Primo 12.8, Plt Count 416, MPV 10.3, Immature Gran % (Auto) 0.500, Neut % (Auto) 77.8 H, Lymph % (Auto) 13.1 L, [place] % (Auto) 7.4, Eos % (Auto) 0.8, Baso % (Auto) 0.4, Absolute Neuts (auto) 10.2 H, Absolute Lymphs (auto) 1.71, Nucleated RBC % 0, Sodium 134, Potassium 4.5, Chloride 98, Carbon Dioxide 23.3, Anion Gap 13, BUN 18, Creatinine 1.16, Estim Creat Clear Calc 78.62, Est GFR (MDRD) Non-Af 71, BUN/Creatinine Ratio 15.1, Glucose 247 H, Calcium 8.9 11/23/24 06:14: POC Glucose 236 H Micro: Microbiology 11/21/24 11:18 Urine, Clean Catch Urine Culture - Final Culture exhibits no growth. 11/22/24 Unknown Tissue - Knee Wound Culture - Preliminary No growth-Final to follow 11/22/24 Unknown Tissue - Knee Wound Culture - Preliminary No growth-Final to follow 11/22/24 Unknown Tissue - Knee Wound Culture - Preliminary No growth-Final to follow 11/21/24 11:05 Wound - Knee Gram Stain - Final 11/21/24 11:05 Wound - Knee Wound Culture - Preliminary No growth-Final to follow
--- NOTE | 2024-11-23 11:09 | PN_ITS ---
Subjective Subjective Patient seen and examined. His was by his bedside. He had no active complaints. Review of systems is otherwise negative. He is POD 1 for irrigation and debridement with complete synovectomy and sinus tract excision with polyethylene exchange and revision of right total knee by orthopedic surgery. Wound cultures are pending. He remains on IV antibiotics. Objective Data Objective Data Vital Signs: Vital Signs Temp Pulse Resp BP Pulse Ox O2 Del Method 97.7 F L 84 18 134/72 H 100 Room Air 11/23/24 08:24 11/23/24 08:24 11/23/24 08:24 11/23/24 08:24 11/23/24 08:24 11/23/24 08:24 Oxygen Delivery Method Room Air Weight: 228 lb 9.91 oz Body Mass Index (BMI) 32.0 Intake & Output: Intake and Output for Last 24 Hours 11/21/24 11/22/24 11/23/24 23:59 23:59 23:59 Intake Total 580 / 580 3647.08 / 3647.08 640.75 / 640.75 Output Total 475 / 475 2710 / 2710 1650 / 1650 Balance 105 / 105 937.08 / 937.08 -1009.25 / -1009.25 Lab / Micro Data 11/23/24 05:56 11/23/24 05:56 Labs: Laboratory Results - last 24 hr 11/22/24 11:49: POC Glucose 133 H 11/22/24 18:24: POC Glucose 162 H 11/22/24 21:45: POC Glucose 306 H 11/23/24 00:35: Vancomycin Trough 18.5 H 11/23/24 05:56: WBC 13.1 H, RBC 3.86 L, Hgb 11.1 L, Hct 33.9 L, MCV 87.8, MCH 28.8, MCHC 32.7, RDW Std Deviation 41.2, RDW Coeff of Primo 12.8, Plt Count 416, MPV 10.3, Immature Gran % (Auto) 0.500, Neut % (Auto) 77.8 H, Lymph % (Auto) 13.1 L, [place] % (Auto) 7.4, Eos % (Auto) 0.8, Baso % (Auto) 0.4, Absolute Neuts (auto) 10.2 H, Absolute Lymphs (auto) 1.71, Nucleated RBC % 0, Sodium 134, Potassium 4.5, Chloride 98, Carbon Dioxide 23.3, Anion Gap 13, BUN 18, Creatinine 1.16, Estim Creat Clear Calc 78.62, Est GFR (MDRD) Non-Af 71, BUN/Creatinine Ratio 15.1, Glucose 247 H, Calcium 8.9 11/23/24 06:14: POC Glucose 236 H Micro: Microbiology 11/21/24 11:18 Urine, Clean Catch Urine Culture - Final Culture exhibits no growth. 11/22/24 Unknown Tissue - Knee Wound Culture - Preliminary No growth-Final to follow 11/22/24 Unknown Tissue - Knee Wound Culture - Preliminary No growth-Final to follow 11/22/24 Unknown Tissue - Knee Wound Culture - Preliminary No growth-Final to follow 11/21/24 11:05 Wound - Knee Gram Stain - Final 11/21/24 11:05 Wound - Knee Wound Culture - Preliminary No growth-Final to follow Physical Exam Const alert, oriented x3, no apparent distress and well nourished General Appearance: cooperative and well developed HEENT normocephalic, head/scalp atraumatic and moist oral mucous membranes Eyes PERRL and EOMs intact bilaterally Neck no lymphadenopathy and supple Lymph Lymphatic: no lymphadenopathy noted Resp normal respiratory effort, normal air movement and clear to auscultation bilaterally Cardio regular rate, regular rhythm, S1 normal heart sound, S2 normal heart sound and no murmurs GI normal to inspection, nondistended, normoactive bowel sounds, soft to palpation, non-tender and non-distended Extremity Extremity Narrative: right knee wrapped in bandage. Skin Skin Narrative: as under extremities General Skin Exam: no breakdown Neuro CN's II-XII intact bilaterally, no focal motor deficits and no sensory deficits noted Motor Exam: strength 5/5 throughout and general weakness Psych thought process normal and cooperative Appearance: appropriate Assessment & Plan Assessment/Plan (1) Infection of prosthetic right knee joint: (2) Postoperative infection of knee: PLAN: Plan #Post operative right knee infection * Had a right knee replacement by Dr. Solo about 6 days prior to admission and was doing well until 3 days prior to admission when he noticed redness and swelling of his right knee and subsequently also noted discharge from the knee. * WBC was 12.7 on admission and x-ray of the knee showed right total knee arthroplasty in good alignment with no evidence of periprosthetic fractures. * K s/p right knee irrigation and debridement with complete synovectomy and sinus tract excision with polyethylene exchange revision of the right total knee. Today's postop day 1. * Wound cultures pending. ID consulted. PT OT on board. * . Tylenol, p.o. oxycodone and IV morphine as needed for pain * On IV vancomycin and Zosyn. Per ID he will need a PICC and 6 weeks of IV antibiotics on discharge. * #Type 2 diabetes mellitus: On Lantus 55 units nightly. Insulin sliding scale. Accu-Cheks ACHS. #Hypertension: On chlorthalidone DVT prophylaxis: Lovenox CODE STATUS: Full code Charges/Coding Visit Charges Inpatient E&M: 59613 Subs Hosp L2
[2024-11-23 11:11] LABS: Bedside Glucose 196 mg/dL (74-106)
--- NOTE | 2024-11-23 11:49 | CASEMGMT ---
Addendum entered by Rajinder Ingram 11/23/24 17:07: Referral was made to [facility] and per Araceli @ [facility], they are able to accept pt and could do SOC as early as , if pt is medically ready to discharge home on Tuesday. She is aware dc plan and need of IV atb's is still pending. Araceli states HHC is covered @ 100 % through 12/17/24. She states when plan renews 12/18/24, if insurance plan/benefits remain the same as what pt currently has, pt would be responsible for 30% cost for each [facility] visit, which would be approx $80-90. Pt made aware. Araceli also stated pt's insurance does not require him to be homebound. Per Mayi @ [facility], pt has reached [id number] max and medication/supplies would be covered @ 100 % through 12/17/24. She states when plan renews 12/18/24, if insurance plan/benefits remain the same as what pt currently has, pt would be responsible for 30% cost of medication/supplies until deductible is reached. Until it is determined what medication, frequency, and length is pt will need @ dc, unable to estimate pt's [id number] cost. Mayi will f/u with [facility] ERICK BEAUCHAMP, on Tuesday. Original Note: ERICK BEAUCHAMP NOTE: Anticipate pt will need 6 wks IV atb's @ discharge. Cx's are pending. ERICK BEAUCHAMP to room. Pt sitting up in chair, in room visiting. Discussed discharge plan. They both state have been made aware 6 wks IV atb's anticipated @ dc and are aware this is dependent upon cx results. Many questions answered. Pt and prefer for pt to dc home and is willing to learn how to do IV infusions. voices concern re: cost and insurance benefits, stating pt's insurance does not have good coverage and she is not sure if HHC is one of his benefits. She voices concern re: prior hospital bill @ another hospital that they owe and other [id number] expenses, stating they are often responsible for 50 % of bills. She states pt has met his deducible, but it starts over December 18. states even though deductible has been met, she is pretty sure they will still have out-of pocket costs. If IV atb's are needed @ [place], they would like pt to have [facility] as 1st preference, if they are able to accept pt, and decline wanting list of other HHC options at this time unless [facility] unable to accept. They also would like insurance benefits ran @ [facility] for infusion co to determine estimated [id number] cost. followed RN NITO out into the hallway to talk w/ERICK BEAUCHAMP alone. She states she was informed that pt will be losing all insurance as of 01/07/25 if he does not return to work by then. She is aware of COBRA insurance, but is pretty sure that will be ~$3,000/mo and they cannot afford that. She has not informed of this yet. She would like to talk w/someone re: any resources/info available. Laura CRABTREE, made aware. Raghu SR RN CM
[2024-11-23 12:58] VITALS: BP 141/68; PULSE 85; RESP 18; TEMP 36.6; O2SAT 98
--- NOTE | 2024-11-23 14:18 | CASEMGMT ---
Social Work- SW met with pt to provide resources. Pt spouse expressed concern that pt could loose job of 42 years and insurance in December if he is unable to return to work. Pt is unaware, per spouse, of this information and pt spouse reports that she does not want pt to know at this time since it is not a definite. Pt spouse wants pt to concentrate on recovery. SW completed referral to [facility], Mayra. Mayra met with pt and reports that if pt would loose his job, they would qualify for RENE, however, pt does not qualify at this time. SW provided information on Prescription programs, [facility], [place], and [facility]. Pt reports no additional needs at this time. SW remains available to follow. MARGA Esparza
[2024-11-23 16:33] VITALS: BP 130/75; PULSE 88; RESP 18; TEMP 37.1; O2SAT 100
[2024-11-23] MEDS: Insulin Lispro 100 UNIT/ML INSULN.PEN 30 UNIT SC (16:38)
[2024-11-23 17:01] LABS: Bedside Glucose 245 mg/dL (74-106)
[2024-11-23 18:33] VITALS: BMI 32.0
[2024-11-23 21:00] VITALS: BP 122/67; PULSE 87; RESP 18; TEMP 36.7; O2SAT 97
[2024-11-23 22:37] LABS: Bedside Glucose 109 mg/dL (74-106)
[2024-11-24] MEDS: Vancomycin HCl 2,000 MG in 0.9% Normal Saline (500mL Bag) 500 ML 250 MG IV ×2 (01:11→13:22)
[2024-11-24 03:43] VITALS: BP 127/71; PULSE 79; RESP 16; TEMP 36.8; O2SAT 97
[2024-11-24] MEDS: Acetaminophen 500 MG Tablet 1000 MG PO ×3 (05:13→20:42)
[2024-11-24] MEDS: Piperacil/Tazobactam 3.375 GM in 0.9% Normal Saline (50mL MB+) 50 ML IV ×3 (05:15→20:43)
[2024-11-24 06:46] LABS: Absolute Lymphocyte Count 1.92 X10^3/uL (0.83-4.51); Absolute Neutrophil Count 5.7 X10^3/uL (2.0-7.7); Basophil# 0.06 X10^3/uL; Basophil% 0.7 % (0-1); Eosinophil# 0.39 X10^3/uL; Eosinophils% 4.4 % (0-5); Hematocrit 29.7 % (40-54); Hemoglobin 9.7 g/dL (13.0-16.5); Lymphocyte # 1.92 X10^3/ul (0.83-4.51); Lymphocyte % 21.8 % (19-41); Mean Corp Hgb Conc 32.7 g/dL (32-36); Mean Corpuscular Hgb 28.5 pg (27.0-32.0); Mean Corpuscular Volume 87.4 fL (80-94); Mean Platelet Vol. 10.5 fl (6.2-12.0); NRBC Flagged by Analyzer 0 % (0-5); Neutrophil # 5.67 X10^3/uL (2.7-7.7); Neutrophil % 64.4 % (47-70); Platelet Count 354 K/mm3 (150-450); RBC Distribution Width SD 41.4 fl (35.1-43.9); White Blood Count 8.8 K/mm3 (4.4-11.0)
[2024-11-24 07:44] LABS: Anion Gap 13 (5-15); BUN 17 mg/dL (4-19); BUN/Creat Ratio 14.6 RATIO (10-20); Calcium,Total 8.6 mg/dL (7.6-11.0); Carbon Dioxide 21.4 mmol/L (21.0-32.0); Chloride 101 mmol/L (98-108); Creatinine, Serum 1.14 mg/dL (0.70-1.20); EST Glomerular Filtration Rate 72 (>60); Glucose 219 mg/dL (70-99); Potassium 4.5 mmol/L (3.3-5.1); Sodium Level 135 mmol/L (133-145)
[2024-11-24 08:09] VITALS: O2SAT 95
[2024-11-24 08:45] VITALS: BP 143/80; PULSE 84; RESP 18; TEMP 36.6; O2SAT 95
[2024-11-24] MEDS: Insulin Lispro 100 UNIT/ML INSULN.PEN SC ×2 (08:51→12:19)
[2024-11-24] MEDS: Insulin Lispro 100 UNIT/ML INSULN.PEN 20 UNIT SC ×2 (08:52→12:19)
[2024-11-24] MEDS: Enoxaparin 40 MG/0.4 ML Syringe SC (08:52)
[2024-11-24] MEDS: Chlorthalidone 50 MG Tablet 25 MG PO (08:53)
[2024-11-24] MEDS: Lisinopril 20 MG Tablet PO ×2 (08:54→20:43)
[2024-11-24] MEDS: oxyCODONE 5 MG Tablet PO (08:57)
[2024-11-24 10:35] LABS: Bedside Glucose 275 mg/dL (74-106)
--- NOTE | 2024-11-24 11:26 | PCM.PN.ORT ---
Subjective Subjective Patient is lying comfortably in bed today. Patient states that he is having a better day today and is even smiling upon me entering the room. Patient states that he has been up and working with physical therapy and is looking forward to working with physical therapy again today. Patient states that he has had some dizziness and lightheadedness upon standing up too fast or standing up in the middle the night which is not extremely abnormal for him. Patient denies any nausea or vomiting. Patient denies any shortness of breath, chest pain, calf pain. Patient denies any fevers, chills, signs of infection. Patient states that he has not yet had a bowel movement. Patient states that his pain is adequately controlled at this point. Patient denies any adverse events overnight. Objective Data Objective Data Vital Signs: Vital Signs Temp Pulse Resp BP Pulse Ox O2 Del Method 97.9 F 84 18 143/80 H 95 Room Air 11/24/24 08:45 11/24/24 08:45 11/24/24 08:45 11/24/24 08:45 11/24/24 08:45 11/24/24 08:45 Oxygen Delivery Method Room Air Weight: 103.7 kg Body Mass Index (BMI) 32.0 Intake & Output: Intake and Output for Last 24 Hours 11/22/24 11/23/24 11/24/24 23:59 23:59 23:59 Intake Total 3647.08 / 3647.08 1230.75 / 1430.75 1040 / 1040 Output Total 2710 / 2710 2250 / 2525 650 / 650 Balance 937.08 / 937.08 -1019.25 / -1094.25 390 / 390 Lab / Micro Data 11/24/24 04:47 11/24/24 04:47 Labs: Laboratory Results - last 24 hr 11/23/24 16:30: POC Glucose 245 H 11/23/24 20:58: POC Glucose 109 H 11/24/24 04:47: WBC 8.8, RBC 3.40 L, Hgb 9.7 L, Hct 29.7 L, MCV 87.4, MCH 28.5, MCHC 32.7, RDW Std Deviation 41.4, RDW Coeff of Primo 13.0, Plt Count 354, MPV 10.5, Immature Gran % (Auto) 0.700, Neut % (Auto) 64.4, Lymph % (Auto) 21.8, [place] % (Auto) 8.0, Eos % (Auto) 4.4, Baso % (Auto) 0.7, Absolute Neuts (auto) 5.7, Absolute Lymphs (auto) 1.92, Nucleated RBC % 0, Sodium 135, Potassium 4.5, Chloride 101, Carbon Dioxide 21.4, Anion Gap 13, BUN 17, Creatinine 1.14, Estim Creat Clear Calc 80.00, Est GFR (MDRD) Non-Af 72, BUN/Creatinine Ratio 14.6, Glucose 219 H, Calcium 8.6 11/24/24 08:39: POC Glucose 275 H Micro: Microbiology 11/22/24 Unknown Tissue - Knee Gram Stain - Final 11/22/24 Unknown Tissue - Knee Wound Culture - Preliminary No growth-Final to follow 11/21/24 11:05 Wound - Knee Gram Stain - Final 11/21/24 11:05 Wound - Knee Wound Culture - Final No growth aerobically. 11/22/24 Unknown Tissue - Knee Gram Stain - Final 11/22/24 Unknown Tissue - Knee Wound Culture - Preliminary No growth-Final to follow 11/22/24 Unknown Tissue - Knee Gram Stain - Final 11/22/24 Unknown Tissue - Knee Wound Culture - Preliminary No growth-Final to follow 11/21/24 10:57 Blood Culture (Wb) - Anticubital Right Blood Culture - Preliminary No growth in 48 hours. 11/21/24 10:57 Blood Culture (Wb) - Anticubital Right Blood Culture - Preliminary No growth in 48 hours. 11/21/24 11:18 Urine, Clean Catch Urine Culture - Final Culture exhibits no growth. Physical Exam Narrative Vital signs stable and afebrile. Patient is able to plantarflex and dorsiflex actively. Sensation is intact to light touch to saphenous, sural, superficial and deep peroneal, and tibial distribution. Knee immobilizer in place Incisional wound VAC in place with no output in canister or tubing Hemovac drain in place with output in canister. Neurovascularly intact overall. Negative Homans bilaterally. . 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 S/P irrigation debridement with complete synovectomy, sinus tract excision and polyethylene exchange revision right total knee arthroplasty POD #2 2. Continue Pain Medications: Tylenol and oxycodone 3. DVT Prophylaxis: Currently on Lovenox in the hospital. Recommend upon discharge aspirin 81 mg twice daily for 4 weeks postoperatively. Patient denies past history of DVT or pulmonary embolism 4. PT/OT: Weightbearing as tolerated with walker. Patient states that he worked with physical therapy yesterday and it went well. Patient must remain in the immobilizer and no flexion of the knee for 2 weeks for incision rest 5. H & H: 9.7/29.7. Patient states that he does occasionally have minimal dizziness/lightheadedness when standing up quick or getting up in the middle of the night. Patient will be started on ferrous sulfate and folic acid following anemia protocol. 6. Infectious disease consultation: Patient is currently on vancomycin and Zosyn. Microbiology specimens intraoperatively are pending. Infectious disease stated in previous note would plan on PICC line and 6 weeks of IV antibiotics at discharge. Appreciate recommendations from infectious disease for safe discharge planning. 8. Prevena incisional wound VAC: Continue with incisional wound VAC for 1 week postoperatively with removal on November 30, 2024. While incisional wound VAC is on this should not get wet. Patient voiced understanding. 8. Hemovac drain: Up until this point patient has had 10 mL of drainage. Hemovac drain was removed today. Patient had minimal bloody drainage as he is currently on Lovenox. Compressive dressing was placed. Nurse was advised to do dry dressing changes if needed. 9. Encouraged Incentive Spirometry 10. Patient is aware of postoperative constipation that can occur from 1-3 days postoperatively. Will continue with senna 2 tablets twice daily until first bowel movement. Patient was advised if not having a bowel movement after day 3 he is to contact orthopedics so appropriate change can be made. Patient voiced understanding. 11. Continue postoperative medical treatment per medicine 12. Disposition: We are currently waiting on final cultures for determination of antibiotics and recommendations by infectious disease. At this point infectious disease has planned on patient requiring PICC line and IV antibiotics for 6 weeks postoperatively. Appreciate recommendations from infectious disease. Patient was advised that we may not have final results until Tuesday. Primary care team will be involved for main discharge planning. Patient is to continue on current pain regimen. Patient will continue working with physical therapy and continue to be weightbearing as tolerated with a walker. Patient is to stay in immobilizer for 2 weeks without flexion. Hemovac drain was removed today. Patient will continue with Prevena incisional wound VAC for 1 week postoperatively. Patient was encouraged to call with any questions, concerns, new problems. All questions were answered to best my ability. I have reviewed the [place] Automated Rx Reporting System (OARRS) report for this patient for refill pattern and other prescriber involvement as part of the appropriate surveillance for the provision of acute and chronic controlled medications. The report was requested and reviewed on the date of this entry and was considered in the prescribing process. This dictation was created using voice recognition software. Phonetic and/or grammatical errors may exist.
[2024-11-24] MEDS: 0.9% Saline Lock 10 ML Syringe IV (13:22)
[2024-11-24] MEDS: Polyethylene Glycol 3350 17 GM PACKET PO (13:22)
[2024-11-24] MEDS: Ferrous Sulfate 325 MG Tablet PO ×2 (13:23→16:38)
--- NOTE | 2024-11-24 13:52 | PN_ITS ---
Subjective Subjective Patient seen and examined. He complained of constipation. He has no other complaints. Review of systems otherwise negative. Wound cultures are still pending. He has remained hemodynamically stable. Objective Data Objective Data Vital Signs: Vital Signs Temp Pulse Resp BP Pulse Ox O2 Del Method 97.9 F 84 18 143/80 H 95 Room Air 11/24/24 08:45 11/24/24 08:45 11/24/24 08:45 11/24/24 08:45 11/24/24 08:45 11/24/24 08:45 Oxygen Delivery Method Room Air Weight: 228 lb 9.91 oz Body Mass Index (BMI) 32.0 Intake & Output: Intake and Output for Last 24 Hours 11/22/24 11/23/24 11/24/24 23:59 23:59 23:59 Intake Total 3647.08 / 3647.08 1230.75 / 1430.75 1040 / 1040 Output Total 2710 / 2710 2250 / 2525 650 / 650 Balance 937.08 / 937.08 -1019.25 / -1094.25 390 / 390 Lab / Micro Data 11/24/24 04:47 11/24/24 04:47 Labs: Laboratory Results - last 24 hr 11/23/24 16:30: POC Glucose 245 H 11/23/24 20:58: POC Glucose 109 H 11/24/24 04:47: WBC 8.8, RBC 3.40 L, Hgb 9.7 L, Hct 29.7 L, MCV 87.4, MCH 28.5, MCHC 32.7, RDW Std Deviation 41.4, RDW Coeff of Primo 13.0, Plt Count 354, MPV 10.5, Immature Gran % (Auto) 0.700, Neut % (Auto) 64.4, Lymph % (Auto) 21.8, [place] % (Auto) 8.0, Eos % (Auto) 4.4, Baso % (Auto) 0.7, Absolute Neuts (auto) 5.7, Absolute Lymphs (auto) 1.92, Nucleated RBC % 0, Sodium 135, Potassium 4.5, Chloride 101, Carbon Dioxide 21.4, Anion Gap 13, BUN 17, Creatinine 1.14, Estim Creat Clear Calc 80.00, Est GFR (MDRD) Non-Af 72, BUN/Creatinine Ratio 14.6, G lucose 219 H, Calcium 8.6 11/24/24 08:39: POC Glucose 275 H Micro: Microbiology 11/22/24 Unknown Tissue - Knee Gram Stain - Final 11/22/24 Unknown Tissue - Knee Wound Culture - Preliminary No growth-Final to follow 11/21/24 11:05 Wound - Knee Gram Stain - Final 11/21/24 11:05 Wound - Knee Wound Culture - Final No growth aerobically. 11/22/24 Unknown Tissue - Knee Gram Stain - Final 11/22/24 Unknown Tissue - Knee Wound Culture - Preliminary No growth-Final to follow 11/22/24 Unknown Tissue - Knee Gram Stain - Final 11/22/24 Unknown Tissue - Knee Wound Culture - Preliminary No growth-Final to follow 11/21/24 10:57 Blood Culture (Wb) - Anticubital Right Blood Culture - Preliminary No growth in 48 hours. 11/21/24 10:57 Blood Culture (Wb) - Anticubital Right Blood Culture - Preliminary No growth in 48 hours. 11/21/24 11:18 Urine, Clean Catch Urine Culture - Final Culture exhibits no growth. Physical Exam Const alert, oriented x3, no apparent distress and well nourished General Appearance: cooperative and comfortable HEENT normocephalic, head/scalp atraumatic, hearing grossly normal bilaterally, nasal mucous membranes and turbinates normal and moist oral mucous membranes Eyes PERRL, EOMs intact bilaterally and conjunctivae normal Neck full ROM, no lymphadenopathy and supple Lymph Lymphatic: no lymphadenopathy noted Chest inspection of chest normal Resp normal respiratory effort, normal air movement, no retractions, no use of accessory muscles and clear to auscultation bilaterally Cardio regular rate, regular rhythm, S1 normal heart sound, S2 normal heart sound, no murmurs and peripheral pulses 2+ throughout GI normal to inspection, nondistended, normoactive bowel sounds, soft to palpation, non-tender and non-distended Back/Spine normal ROM Extremity normal capillary refill and no clubbing, cyanosis or edema Extremity Narrative: right knee wrapped in bandage. Skin no rashes or lesions noted Skin Narrative: as under extremities Neuro oriented x3, CN's II-XII intact bilaterally, moves all extremities, no focal motor deficits and no sensory deficits noted Sensorium / Orientation: awake and alert Speech: speech normal Motor Exam: strength 5/5 throughout and general weakness Psych mental status grossly normal, thought process normal, cooperative and affect normal Appearance: appropriate Assessment & Plan Assessment/Plan (1) Infection of prosthetic right knee joint: (2) Postoperative infection of knee: PLAN: Plan #Post operative right knee infection * Had a right knee replacement by Dr. Solo about 6 days prior to admission and was doing well until 3 days prior to admission when he noticed redness and swelling of his right knee and subsequently also noted discharge from the knee. * WBC was 12.7 on admission and x-ray of the knee showed right total knee arthroplasty in good alignment with no evidence of periprosthetic fractures. * K s/p right knee irrigation and debridement with complete synovectomy and sinus tract excision with polyethylene exchange revision of the right total knee. Today's postop day 2. * Wound cultures pending. ID consulted. PT OT on board. * . Tylenol, p.o. oxycodone and IV morphine as needed for pain * On IV vancomycin and Zosyn. Per ID he will need a PICC and 6 weeks of IV antibiotics on discharge. * #Type 2 diabetes mellitus: On Lantus 55 units nightly. Insulin sliding scale. Accu-Cheks ACHS. #Hypertension: On chlorthalidone DVT prophylaxis: Lovenox CODE STATUS: Full code Charges/Coding Visit Charges Inpatient E&M: 66385 Subs Hosp L2
[2024-11-24 14:45] VITALS: BP 131/76; PULSE 84; RESP 18; TEMP 36.5; O2SAT 99
[2024-11-24 16:16] LABS: Bedside Glucose 186 mg/dL (74-106)
[2024-11-24 16:26] LABS: Bedside Glucose 51 mg/dL (74-106)
[2024-11-24 17:09] LABS: Bedside Glucose 93 mg/dL (74-106)
[2024-11-24 20:35] VITALS: BP 138/75; PULSE 88; RESP 16; TEMP 36.8; O2SAT 98
[2024-11-24] MEDS: Insulin Glargine-YFGN 100 UNIT/ML Pen 55 UNIT SC (20:42)
[2024-11-24 22:22] LABS: Bedside Glucose 228 mg/dL (74-106)
[2024-11-25 01:48] LABS: Vancomycin, Trough Level 23.8 ug/mL (5.0-15.0)
[2024-11-25 03:12] VITALS: BP 137/75; PULSE 78; RESP 16; TEMP 36.8; O2SAT 99
--- NOTE | 2024-11-25 03:40 | PCM.RX.CS ---
Consult Antibiotic Management Pharmacy has been consulted to manage selected antibiotic: Vancomycin Type of Intervention Type of Consult: Follow-up Labs Labs: Sodium 135 mmol/L (133-145) 11/24/24 04:47 Potassium 4.5 mmol/L (3.3-5.1) 11/24/24 04:47 Chloride 101 mmol/L (98-108) 11/24/24 04:47 Carbon Dioxide 21.4 mmol/L (21.0-32.0) 11/24/24 04:47 Anion Gap 13 (5-15) 11/24/24 04:47 BUN 17 mg/dL (4-19) 11/24/24 04:47 Creatinine 1.14 mg/dL (0.70-1.20) 11/24/24 04:47 Est GFR (MDRD) Non-Af 72 (>60) 11/24/24 04:47 BUN/Creatinine Ratio 14.6 RATIO (10-20) 11/24/24 04:47 Glucose 219 mg/dL (70-99) H 11/24/24 04:47 Vancomycin Trough 23.8 ug/mL (5.0-15.0) H 11/25/24 00:48 Microbiology Microbiology: Microbiology 11/22/24 Unknown Tissue - Knee Gram Stain - Final 11/22/24 Unknown Tissue - Knee Wound Culture - Preliminary No growth-Final to follow 11/21/24 11:05 Wound - Knee Gram Stain - Final 11/21/24 11:05 Wound - Knee Wound Culture - Final No growth aerobically. 11/22/24 Unknown Tissue - Knee Gram Stain - Final 11/22/24 Unknown Tissue - Knee Wound Culture - Preliminary No growth-Final to follow 11/22/24 Unknown Tissue - Knee Gram Stain - Final 11/22/24 Unknown Tissue - Knee Wound Culture - Preliminary No growth-Final to follow 11/21/24 10:57 Blood Culture (Wb) - Anticubital Right Blood Culture - Preliminary No growth in 48 hours. 11/21/24 10:57 Blood Culture (Wb) - Anticubital Right Blood Culture - Preliminary No growth in 48 hours. 11/21/24 11:18 Urine, Clean Catch Urine Culture - Final Culture exhibits no growth. Goal Trough Goal Trough: 15-20 mcg/mL Pharmacy Plan for Drug Dosing Pharmacy Plan for Drug Dosing: Pharmacy Service will continTROUGH 23.8 @ 11.5 HOURS. HOLD DOSE AND DRAW RANDOM LEVEL IN 8 HOURS Follow-Up Labs Follow-Up Labs: Trough: Vancomycin Date/Time Labs Ordered Labs to be done on [date and time ordered]: 11/25 @ 0830 RANDOM
[2024-11-25] MEDS: Piperacil/Tazobactam 3.375 GM in 0.9% Normal Saline (50mL MB+) 50 ML IV ×3 (05:29→22:17)
[2024-11-25] MEDS: Acetaminophen 500 MG Tablet 1000 MG PO ×3 (05:30→22:16)
[2024-11-25 06:33] LABS: Absolute Lymphocyte Count 1.71 X10^3/uL (0.83-4.51); Absolute Neutrophil Count 6.5 X10^3/uL (2.0-7.7); Basophil# 0.05 X10^3/uL; Basophil% 0.5 % (0-1); Eosinophil# 0.41 X10^3/uL; Eosinophils% 4.4 % (0-5); Hematocrit 31.1 % (40-54); Hemoglobin 10.2 g/dL (13.0-16.5); Lymphocyte # 1.71 X10^3/ul (0.83-4.51); Lymphocyte % 18.2 % (19-41); Mean Corp Hgb Conc 32.8 g/dL (32-36); Mean Corpuscular Hgb 28.5 pg (27.0-32.0); Mean Corpuscular Volume 86.9 fL (80-94); Mean Platelet Vol. 10.5 fl (6.2-12.0); Monocyte% 7.4 % (0-10); NRBC Flagged by Analyzer 0 % (0-5); Platelet Count 373 K/mm3 (150-450); RBC Distribution Width SD 40.7 fl (35.1-43.9); Red Blood Count 3.58 M/mm3 (4.6-6.2); White Blood Count 9.4 K/mm3 (4.4-11.0)
[2024-11-25 07:10] LABS: Anion Gap 12 (5-15); BUN 14 mg/dL (4-19); BUN/Creat Ratio 13.3 RATIO (10-20); Calcium,Total 9.1 mg/dL (7.6-11.0); Carbon Dioxide 23.5 mmol/L (21.0-32.0); Chloride 97 mmol/L (98-108); Creatinine, Serum 1.07 mg/dL (0.70-1.20); EST Glomerular Filtration Rate 78 (>60); Estimated Creatinine Clearance 85.24 ml/min (50-250); Glucose 209 mg/dL (70-99); Potassium 4.2 mmol/L (3.3-5.1); Sodium Level 133 mmol/L (133-145)
[2024-11-25 08:23] LABS: Bedside Glucose 203 mg/dL (74-106)
[2024-11-25 08:33] VITALS: BP 136/71; PULSE 75; RESP 18; TEMP 37.2; O2SAT 98
[2024-11-25] MEDS: Lisinopril 20 MG Tablet PO ×2 (08:41→22:16)
[2024-11-25] MEDS: Polyethylene Glycol 3350 17 GM PACKET PO (08:41)
[2024-11-25] MEDS: Folic Acid 1 MG Tablet PO (08:41)
[2024-11-25] MEDS: Enoxaparin 40 MG/0.4 ML Syringe SC (08:41)
[2024-11-25] MEDS: oxyCODONE 5 MG Tablet PO (08:41)
[2024-11-25] MEDS: Insulin Lispro 100 UNIT/ML INSULN.PEN SC ×2 (08:42→12:40)
[2024-11-25] MEDS: Insulin Lispro 100 UNIT/ML INSULN.PEN 20 UNIT SC ×2 (08:43→12:40)
[2024-11-25] MEDS: Ferrous Sulfate 325 MG Tablet PO ×2 (08:45→16:36)
[2024-11-25] MEDS: Chlorthalidone 50 MG Tablet 25 MG PO (08:46)
[2024-11-25] MEDS: 0.9% Saline Lock 10 ML Syringe IV ×2 (10:52→13:53)
--- NOTE | 2024-11-25 11:19 | PN_ITS ---
Subjective Subjective Patient seen and examined. He had no complaints. Review of systems otherwise negative. He has remained hemodynamically stable. Objective Data Objective Data Vital Signs: Vital Signs Temp Pulse Resp BP Pulse Ox O2 Del Method 98.9 F 75 18 136/71 H 98 Room Air 11/25/24 08:33 11/25/24 08:33 11/25/24 08:33 11/25/24 08:33 11/25/24 08:33 11/25/24 08:33 Oxygen Delivery Method Room Air Weight: 228 lb 9.91 oz Body Mass Index (BMI) 32.0 Intake & Output: Intake and Output for Last 24 Hours 11/23/24 11/24/24 11/26/24 23:59 23:59 00:59 Intake Total 1230.75 / 1430.75 1668.5 / 1668.5 100 / 100 Output Total 2250 / 2525 1150 / 1150 700 / 700 Balance -1019.25 / -1094.25 518.5 / 518.5 -600 / -600 Lab / Micro Data 11/25/24 05:30 11/25/24 05:30 Labs: Laboratory Results - last 24 hr 11/24/24 08:39: POC Glucose 275 H 11/24/24 12:17: POC Glucose 186 H 11/24/24 16:08: POC Glucose 51 L 11/24/24 16:37: POC Glucose 93 11/24/24 20:41: POC Glucose 228 H 11/25/24 00:48: Vancomycin Trough 23.8 H 11/25/24 05:30: WBC 9.4, RBC 3.58 L, Hgb 10.2 L, Hct 31.1 L, MCV 86.9, MCH 28.5, MCHC 32.8, RDW Std Deviation 40.7, RDW Coeff of Primo 13.0, Plt Count 373, MPV 10.5, Immature Gran % (Auto) 0.500, Neut % (Auto) 69.0, Lymph % (Auto) 18.2 L, [place] % (Auto) 7.4, Eos % (Auto) 4.4, Baso % (Auto) 0.5, Absolute Neuts (auto) 6.5, Absolute Lymphs (auto) 1.71, Nucleated RBC % 0, Sodium 133, Potassium 4.2, Chloride 97 L, Carbon Dioxide 23.5, Anion Gap 12, BUN 14, Creatinine 1.07, Estim Creat Clear Calc 85.24, Est GFR (MDRD) Non-Af 78, BUN/Creatinine Ratio 13.3, G lucose 209 H, Calcium 9.1 11/25/24 08:04: POC Glucose 203 H 11/25/24 08:40: Random Vancomycin 17.0 H Micro: Microbiology 11/22/24 Unknown Tissue - Knee Gram Stain - Final 11/22/24 Unknown Tissue - Knee Wound Culture - Preliminary No growth-Final to follow 11/22/24 Unknown Tissue - Knee Gram Stain - Final 11/22/24 Unknown Tissue - Knee Wound Culture - Preliminary No growth-Final to follow 11/22/24 Unknown Tissue - Knee Gram Stain - Final 11/22/24 Unknown Tissue - Knee Wound Culture - Preliminary No growth-Final to follow 11/21/24 11:05 Wound - Knee Gram Stain - Final 11/21/24 11:05 Wound - Knee Wound Culture - Final No growth aerobically. 11/21/24 10:57 Blood Culture (Wb) - Anticubital Right Blood Culture - Preliminary No growth in 48 hours. 11/21/24 10:57 Blood Culture (Wb) - Anticubital Right Blood Culture - Preliminary No growth in 48 hours. 11/21/24 11:18 Urine, Clean Catch Urine Culture - Final Culture exhibits no growth. Physical Exam Const alert, oriented x3, no apparent distress, average body habitus and well nourished General Appearance: cooperative, comfortable and well developed HEENT normocephalic, head/scalp atraumatic, hearing grossly normal bilaterally, nasal mucous membranes and turbinates normal and moist oral mucous membranes Eyes PERRL, EOMs intact bilaterally and conjunctivae normal Neck full ROM, no lymphadenopathy and supple Lymph Lymphatic: no lymphadenopathy noted Chest inspection of chest normal Resp normal respiratory effort, normal air movement, no retractions, no use of accessory muscles and clear to auscultation bilaterally Cardio regular rate, regular rhythm, S1 normal heart sound, S2 normal heart sound, no murmurs and peripheral pulses 2+ throughout GI normal to inspection, nondistended, normoactive bowel sounds, soft to palpation, non-tender and non-distended Back/Spine normal ROM Extremity normal to inspection, full ROM, normal capillary refill and no clubbing, cyanosis or edema Extremity Narrative: right knee wrapped in bandage. Skin no rashes or lesions noted Skin Narrative: as under extremities Neuro oriented x3, CN's II-XII intact bilaterally, moves all extremities, no focal motor deficits and no sensory deficits noted Sensorium / Orientation: awake and alert Speech: speech normal Motor Exam: strength 5/5 throughout and general weakness Psych mental status grossly normal, thought process normal, cooperative and affect normal Appearance: appropriate Assessment & Plan Assessment/Plan (1) Infection of prosthetic right knee joint: (2) Postoperative infection of knee: PLAN: Plan #Post operative right knee infection * Had a right knee replacement by Dr. Solo about 6 days prior to admission and was doing well until 3 days prior to admission when he noticed redness and swelling of his right knee and subsequently also noted discharge from the knee. * WBC was 12.7 on admission and x-ray of the knee showed right total knee arthroplasty in good alignment with no evidence of periprosthetic fractures. * K s/p right knee irrigation and debridement with complete synovectomy and sinus tract excision with polyethylene exchange revision of the right total knee. Today's postop day 3. * Wound cultures pending. ID consulted. PT OT on board. * . Tylenol, p.o. oxycodone and IV morphine as needed for pain * On IV vancomycin and Zosyn. Per ID he will need a PICC and 6 weeks of IV antibiotics on discharge. * antibiotics to be determined per wound cultures. * #Type 2 diabetes mellitus: On Lantus 55 units nightly. Insulin sliding scale. Accu-Cheks ACHS. #Hypertension: On chlorthalidone DVT prophylaxis: Lovenox CODE STATUS: Full code Charges/Coding Visit Charges Inpatient E&M: 02855 Subs Hosp L2
[2024-11-25 12:04] LABS: Bedside Glucose 156 mg/dL (74-106)
--- NOTE | 2024-11-25 12:25 | PCM.RX.CS ---
Consult Antibiotic Management Pharmacy has been consulted to manage selected antibiotic: Vancomycin Type of Intervention Type of Consult: Follow-up Suspected Infection Suspected Infection: Osteomyelitis Prior Doses of Antibiotics Prior Doses of Antibiotics Received/Current Regimen: 2000MG every 12 hours patient received last dose 11/24/24 @ 1322 Start Vancomycin 1750mg every 12 hours on 11/25/24 Labs Labs: Sodium 133 mmol/L (133-145) 11/25/24 05:30 Potassium 4.2 mmol/L (3.3-5.1) 11/25/24 05:30 Chloride 97 mmol/L (98-108) L 11/25/24 05:30 Carbon Dioxide 23.5 mmol/L (21.0-32.0) 11/25/24 05:30 Anion Gap 12 (5-15) 11/25/24 05:30 BUN 14 mg/dL (4-19) 11/25/24 05:30 Creatinine 1.07 mg/dL (0.70-1.20) 11/25/24 05:30 Est GFR (MDRD) Non-Af 78 (>60) 11/25/24 05:30 BUN/Creatinine Ratio 13.3 RATIO (10-20) 11/25/24 05:30 Glucose 209 mg/dL (70-99) H 11/25/24 05:30 Vancomycin Trough 23.8 ug/mL (5.0-15.0) H 11/25/24 00:48 Random Vancomycin 17.0 ug/mL (0.0-15.0) H 11/25/24 08:40 Microbiology Microbiology: Microbiology 11/22/24 Unknown Tissue - Knee Gram Stain - Final 11/22/24 Unknown Tissue - Knee Wound Culture - Preliminary No growth-Final to follow 11/22/24 Unknown Tissue - Knee Gram Stain - Final 11/22/24 Unknown Tissue - Knee Wound Culture - Preliminary No growth-Final to follow 11/22/24 Unknown Tissue - Knee Gram Stain - Final 11/22/24 Unknown Tissue - Knee Wound Culture - Preliminary No growth-Final to follow 11/21/24 11:05 Wound - Knee Gram Stain - Final 11/21/24 11:05 Wound - Knee Wound Culture - Final No growth aerobically. 11/21/24 10:57 Blood Culture (Wb) - Anticubital Right Blood Culture - Preliminary No growth in 48 hours. 11/21/24 10:57 Blood Culture (Wb) - Anticubital Right Blood Culture - Preliminary No growth in 48 hours. 11/21/24 11:18 Urine, Clean Catch Urine Culture - Final Culture exhibits no growth. Dosing Weight Weight used for dosin kg Estimated Creatinine Clearance Estimated Creatinine Clearance: 85 Goal Trough Goal Trough: 15-20 mcg/mL Pharmacy Plan for Drug Dosing Pharmacy Plan for Drug Dosing: Start 1750mg every 12 hours on 11/25/24 Pharmacy Service will continue to monitor and adjust dosing as required. Follow-Up Labs Follow-Up Labs: Trough: Vancomycin Date/Time Labs Ordered Labs to be done on [date and time ordered]: 11/27/24 @ 0030
[2024-11-25 13:50] VITALS: BP 126/76; PULSE 82; RESP 16; TEMP 36.8; O2SAT 98
[2024-11-25] MEDS: Vancomycin HCl 1,750 MG in 0.9% Normal Saline (500mL Bag) 500 ML 250 MG IV (13:52)
[2024-11-25] MEDS: 0.9% Normal Saline (100mL Bag) 100 ML IV (13:53)
[2024-11-25] MEDS: Insulin Lispro 100 UNIT/ML INSULN.PEN 30 UNIT SC (16:35)
[2024-11-25 16:52] LABS: Bedside Glucose 125 mg/dL (74-106)
[2024-11-25 22:10] VITALS: BP 150/73; PULSE 90; RESP 16; TEMP 36.7; O2SAT 96
[2024-11-25] MEDS: Insulin Glargine-YFGN 100 UNIT/ML Pen 55 UNIT SC (22:15)
[2024-11-25 23:23] LABS: Bedside Glucose 262 mg/dL (74-106)
[2024-11-26] MEDS: Vancomycin HCl 1,750 MG in 0.9% Normal Saline (500mL Bag) 500 ML 250 MG IV ×2 (01:46→15:10)
[2024-11-26 02:29] VITALS: BP 153/83; PULSE 81; RESP 14; TEMP 36.6; O2SAT 98
[2024-11-26] MEDS: Acetaminophen 500 MG Tablet 1000 MG PO ×3 (06:29→22:15)
[2024-11-26] MEDS: Piperacil/Tazobactam 3.375 GM in 0.9% Normal Saline (50mL MB+) 50 ML IV (06:29)
[2024-11-26 06:58] LABS: Absolute Lymphocyte Count 1.64 X10^3/uL (0.83-4.51); Absolute Neutrophil Count 6.6 X10^3/uL (2.0-7.7); Basophil# 0.05 X10^3/uL; Basophil% 0.5 % (0-1); Eosinophil# 0.44 X10^3/uL; Eosinophils% 4.6 % (0-5); Hematocrit 31.7 % (40-54); Hemoglobin 10.3 g/dL (13.0-16.5); Lymphocyte # 1.64 X10^3/ul (0.83-4.51); Lymphocyte % 17.2 % (19-41); Mean Corp Hgb Conc 32.5 g/dL (32-36); Mean Corpuscular Hgb 28.3 pg (27.0-32.0); Mean Corpuscular Volume 87.1 fL (80-94); Mean Platelet Vol. 10.3 fl (6.2-12.0); Monocyte# 0.72 X10^3/uL; Monocyte% 7.6 % (0-10); NRBC Flagged by Analyzer 0 % (0-5); Neutrophil # 6.59 X10^3/uL (2.7-7.7); Neutrophil % 69.4 % (47-70); Platelet Count 355 K/mm3 (150-450); RBC Distribution Width SD 41.4 fl (35.1-43.9); Red Blood Count 3.64 M/mm3 (4.6-6.2); White Blood Count 9.5 K/mm3 (4.4-11.0)
--- NOTE | 2024-11-26 07:12 | PCM.PN.ORT ---
Subjective Subjective Patient is doing well overall. Comfortable. Culture still without growth. 2 out of 3 Gram stains do show gram positive rods. No chest pain or shortness of breath no calf pain today. Awaiting final recommendations from infectious disease for discharge will also need insurance verification and home health arrangements depending on antibiotic regimen. Over the weekend patient did have a malfunction of his Prevena wound VAC. Currently doing dry dressings. Remains in knee immobilizer. Objective Data Objective Data Vital Signs: Vital Signs Temp Pulse Resp BP Pulse Ox O2 Del Method 97.9 F 81 14 153/83 H 98 Room Air 11/26/24 02:29 11/26/24 02:29 11/26/24 02:29 11/26/24 02:29 11/26/24 02:29 11/26/24 02:29 Oxygen Delivery Method Room Air Weight: 228 lb 9.91 oz Body Mass Index (BMI) 32.0 Intake & Output: Intake and Output for Last 24 Hours 11/24/24 11/26/24 11/26/24 23:59 00:59 23:59 Intake Total 1668.5 / 1668.5 690.28 / 690.28 585 / 585 Output Total 1150 / 1150 700 / 700 Balance 518.5 / 518.5 -9.72 / -9.72 585 / 585 Lab / Micro Data Attestation: I reviewed the patient's lab results. 11/26/24 06:22 11/25/24 05:30 Labs: Laboratory Results - last 24 hr 11/25/24 08:04: POC Glucose 203 H 11/25/24 08:40: Random Vancomycin 17.0 H 11/25/24 11:45: POC Glucose 156 H 11/25/24 16:33: POC Glucose 125 H 11/25/24 22:13: POC Glucose 262 H 11/26/24 06:22: WBC 9.5, RBC 3.64 L, Hgb 10.3 L, Hct 31.7 L, MCV 87.1, MCH 28.3, MCHC 32.5, RDW Std Deviation 41.4, RDW Coeff of Primo 13.0, Plt Count 355, MPV 10.3, Immature Gran % (Auto) 0.700, Neut % (Auto) 69.4, Lymph % (Auto) 17.2 L, [place] % (Auto) 7.6, Eos % (Auto) 4.6, Baso % (Auto) 0.5, Absolute Neuts (auto) 6.6, Absolute Lymphs (auto) 1.64, Nucleated RBC % 0 Micro: Microbiology 11/22/24 Unknown Tissue - Knee Gram Stain - Final 11/22/24 Unknown Tissue - Knee Wound Culture - Preliminary No growth-Final to follow 11/22/24 Unknown Tissue - Knee Gram Stain - Final 11/22/24 Unknown Tissue - Knee Wound Culture - Preliminary No growth-Final to follow 11/22/24 Unknown Tissue - Knee Gram Stain - Final 11/22/24 Unknown Tissue - Knee Wound Culture - Preliminary No growth-Final to follow 11/21/24 11:05 Wound - Knee Gram Stain - Final 11/21/24 11:05 Wound - Knee Wound Culture - Final No growth aerobically. 11/21/24 10:57 Blood Culture (Wb) - Anticubital Right Blood Culture - Preliminary No growth in 48 hours. 11/21/24 10:57 Blood Culture (Wb) - Anticubital Right Blood Culture - Preliminary No growth in 48 hours. 11/21/24 11:18 Urine, Clean Catch Urine Culture - Final Culture exhibits no growth. Physical Exam Narrative Right lower extremity: Incision is clean dry and intact. Distally there is a small amount of red staining of the dry dressing. No active drainage this morning. Incision line proximally is well-approximated. Distally there is a red eschar over the incision. 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 S/P irrigation debridement with complete synovectomy, sinus tract excision and polyethylene exchange revision right total knee arthroplasty POD #4 2. Continue Pain Medications: Tylenol and oxycodone. Diclofenac added by primary service. Pain under control. 3. DVT Prophylaxis: Currently on Lovenox in the hospital. Recommend upon discharge aspirin 81 mg twice daily for 4 weeks postoperatively. Patient denies past history of DVT or pulmonary embolism 4. PT/OT: Weightbearing as tolerated with walker. Patient states that he worked with physical therapy yesterday and it went well. Patient must remain in the immobilizer and no flexion of the knee for 2 weeks for incision rest 5. H & H: 10.3/31.7. On ferrous sulfate and folic acid following anemia protocol. Blood loss related to surgical treatment. 6. Infectious disease consultation: Patient is currently on vancomycin and Zosyn. Microbiology specimens intraoperatively at this time have 2 out of 3 positive Gram stains for Gram-positive rods however, cultures show no growth. Culture swab from office shows no growth. Infectious disease recommending PICC line and 6 weeks of IV antibiotics at discharge. Appreciate recommendations from infectious disease for safe discharge planning. 7. Prevena incisional wound VAC: Patient's Prevena wound VAC malfunctioned over the weekend. Currently with dry dressings. Incision looks good. Plan at this time would be to continue with dry dressings and monitor incision well patient remains an inpatient. If patient is able to be discharged later today I spoke with the wound nurse will discharge him with the incisional wound VAC to be discharged on 12/01. 8. Hemovac drain: Removed November 25. At this time minimal effusion is appreciated. Swelling well under control. 9. Encouraged Incentive Spirometry 10. Patient is aware of postoperative constipation that can occur from 1-3 days postoperatively. Will continue with senna 2 tablets twice daily until first bowel movement. 11. Continue postoperative medical treatment per medicine 12. Disposition: We are currently waiting on final cultures for determination of antibiotics and recommendations by infectious disease. At this point infectious disease has planned on patient requiring PICC line and IV antibiotics for 6 weeks postoperatively. Appreciate recommendations from infectious disease. Patient was advised that we may not have final cultures which would then require more broad-spectrum antibiotic treatment. Primary care team will be involved for main discharge planning. Patient will continue on current pain regimen, orthopedics will manage pain upon discharge. Patient will continue working with physical therapy and continue to be weightbearing as tolerated with a walker. Patient is to stay in immobilizer for 2 weeks without flexion. Hemovac drain was removed 11-25. Patient will continue with dry dressing changes while inpatient if drainage increases again we will be discharged with Prevena. If patient obtains discharge today will discharge with Prevena until 12-01. Patient was encouraged to call with any questions, concerns, new problems. All questions were answered to best my ability. This dictation was created using voice recognition software. Phonetic and/or grammatical errors may exist.
--- NOTE | 2024-11-26 07:23 | DCINST_ITS ---
Discharge Instructions Diet Discharge Diet: No restrictions DC O2, CPAP, BIPAP needs Home O2 Discharge instructions: No Dressing / Incision Discharge Activity: May Not Drive May shower in (days): 2 Ice area for (Minutes): 20 (every hour while awake.) Weight Bearing Status: Weight bearing as tolerated (With knee immobilizer in place) Keep extremity elevated above heart level: Operative Extremity Additional Activity Instructions:: Wear elastic stockings for 2 weeks after your surgery. Must maintain knee immobilizer and limit knee flexion until first postoperative visit. Dressing / Incision Call your doctor if your incision/area has: Continuous Slow Oozing, Sudden Increased Bleeding, Increased Pain/ Swelling, Increased Redness and Foul Smelling Discharge Call your doctor if you observe: Fever of 101 or Higher, Coldness, Increased Pain, Numbness or Tingling, Change in Color, Calf discomfort and Uncontrolled pain Change Dressing in: 5 days (and daily as needed with dry dressings.) Remove Dressing in: 5 days Cleanse incision/area with: Do not get Incision Wet and Keep Dressing Clean & Dry Follow Up Care Please Follow Up With: Luke Cruz PA-C When: 2 weeks postoperatively Test Results: Test results from this visit will be discussed in further detail at your follow- up appointment, if applicable. Discharge Plan Admission Admit Date/Time: 11/21/24 12:58 Attending Provider: Cyndie Stanford Primary Care Provider: Jose Joya Consulting Providers: Albert Humphrey; Cyndie Stanford; Delroy Young; Uziel Patiño Discharge Orders/Prescriptions Prescriptions: No Action lisinopril 20 mg tablet 20 mg PO BID chlorthalidone 25 mg tablet 25 mg PO DAILY doxycycline monohydrate 100 mg capsule 100 mg PO Q12H diclofenac sodium 50 mg tablet,delayed release (DR/EC) 50 mg PO Q12H insulin lispro 100 unit/mL insulin pen 1 sliding scale dose SUBCUT .COMPLEX Patient Comments: Takes 20 units at breakfast, 20 units with lunch and 30 units with dinner Strength 100 UNIT/ML Rx Instructions: 1 sliding scale dose subcutaneously Takes 20 units at breakfast, 20 units with lunch and 30 units with dinner; insulin glargine [Lantus Solostar U-100 Insulin] 100 unit/mL (3 mL) insulin pen 55 unit subcut QHS Referrals / Follow Up: Jose Joya DO [Primary Care Provider] - Disposition Disposition (needs filled in before D/C Order can be placed): Home Health Service
[2024-11-26] MEDS: Insulin Lispro 100 UNIT/ML INSULN.PEN SC ×2 (08:09→11:40)
[2024-11-26] MEDS: Folic Acid 1 MG Tablet PO (08:09)
[2024-11-26] MEDS: Insulin Lispro 100 UNIT/ML INSULN.PEN 20 UNIT SC ×2 (08:09→11:41)
[2024-11-26] MEDS: Chlorthalidone 50 MG Tablet 25 MG PO (08:10)
[2024-11-26] MEDS: Lisinopril 20 MG Tablet PO ×2 (08:11→22:15)
[2024-11-26] MEDS: Enoxaparin 40 MG/0.4 ML Syringe SC (08:11)
[2024-11-26 08:14] LABS: Anion Gap 13 (5-15); BUN 19 mg/dL (4-19); BUN/Creat Ratio 18.7 RATIO (10-20); Carbon Dioxide 22.6 mmol/L (21.0-32.0); Chloride 99 mmol/L (98-108); EST Glomerular Filtration Rate 85 (>60); Glucose 182 mg/dL (70-99); Potassium 4.1 mmol/L (3.3-5.1); Sodium Level 134 mmol/L (133-145)
[2024-11-26 08:22] VITALS: BP 151/87; PULSE 84; RESP 16; TEMP 36.6; O2SAT 98
[2024-11-26 08:43] LABS: Bedside Glucose 194 mg/dL (74-106)
--- NOTE | 2024-11-26 11:00 | WOUNDNOTE ---
Talked with Dr Humphrey this am. Plan is to monitor the knee incision while in the hospital and then apply a Prevena VAC on discharge for a few more days. cultures still not finalized. anticipate patient may be in the hospital another day or so. will monitor.
[2024-11-26] MEDS: Ferrous Sulfate 325 MG Tablet PO ×2 (11:40→16:55)
[2024-11-26 12:04] LABS: Bedside Glucose 217 mg/dL (74-106)
--- NOTE | 2024-11-26 12:19 | CASEMGMT ---
Addendum entered by Roberta Paul 11/26/24 13:19: Sent [facility] ID note from today and pharmacy note from 11/25 via [employer] at this time. Original Note: Received IV rx for pt for vancomycin q 12 hours. Uploaded rx and sent to [facility] as well as current med list and labs. Faxed rx to [facility]. TC to [facility], left message on intake line that rx was faxed and to confirm soc tomorrow am.
--- NOTE | 2024-11-26 12:50 | PCM.PN.ID ---
Physical Exam Narrative Feeling ok, wound vac is on, no fever, no n/v. Mild soft stool, but no abd pain. Const alert and no apparent distress General Appearance: cooperative Resp normal air movement and clear to auscultation bilaterally Cardio regular rate and regular rhythm GI soft to palpation, non-tender and non-distended Skin no rashes or lesions noted ID ID: Route of nutrition/ use of supplements: [] Nutritional Intake: [] IV Site: [] Meehan Catheter: [] Assessment & Plan Assessment/Plan (1) Infection of prosthetic right knee joint: PLAN: Now s/p OR 11/22/[address] Humphrey for I&D with complete synovectomy, sinus tract excision, and poly exchange. Initial knee replacement 10/11/24 at [place]. Surg cx with 2 samples showing GPR, cont empiric vanc. Plan on picc and 6 weeks iv vanc at discharge with stop date 01/03/25 with weekly labs then long course suppressive po doxy. ID followup in 2 weeks. Ordered picc, d/w rehabilitation caseworker. Will follow
--- NOTE | 2024-11-26 13:46 | CASEMGMT ---
Addendum entered by Roberta Paul 11/26/24 15:28: ERICK BEAUCHAMP into pt room to make aware that the vancomycin will be delivered in a minibag and will run over 1 hour and 45 minutes approx. Pt wishes for ERICK BEAUCHAMP to call pt to make aware. TC nora Zurita, she is aware of the above. Addendum entered by Roberta Paul 11/26/24 14:57: Pt nurse states pt is not comfortable with pt dc'ing tonight so late. Message to Dr. Young who is fine with pt dc'ing today and to miss second dose of IV atb. Updated hospitalist who states he will speak with pt. ERICK BEAUCHAMP to room, hospitalist present and pt will dc tomorrow. TC nora Charles at [facility], she is aware pt will not dc and pt will be seen on Tuesday morning. Message sent to [facility] to make aware that pt will dc tomorrow. ERICK BEAUCHAMP to follow. Original Note: ERICK BEAUCHAMP into pt room to discuss dc planning. Pt and seem surprised that they will be dc'ing today with IV atb. Discussed the plan that pt will receive second dose at hospital and dc home after that with [facility] starting tomorrow morning. Answered many questions for pt and . Pt requests pt have a shower prior to going home. She states he has not had a shower in 4 days and has a rash on his back. Spoke to pt nurse regarding the request. TC nora Charles at [facility], she is aware pt will dc after second dose this evening. Sent [facility] the picc report via [employer].
[2024-11-26 16:00] VITALS: BP 143/80; PULSE 88; RESP 16; TEMP 36.6; O2SAT 97
[2024-11-26] MEDS: Insulin Lispro 100 UNIT/ML INSULN.PEN 30 UNIT SC (16:56)
[2024-11-26 17:17] LABS: Bedside Glucose 103 mg/dL (74-106)
--- NOTE | 2024-11-26 19:25 | PCM.PN.HOSP ---
Reason for Visit Reason for Visit: Diagnoses Pyogenic arthritis, unspecified (11/21/24) Infection following a procedure, other surgical site, initial encounter (11/21/24) Infection and inflammatory reaction due to internal right knee prosthesis, initial encounter (11/21/24) Subjective Subjective Patient was seen and examined today, arranges were made for the patient to have home antibiotics and home nursing, patient states that his is uncomfortable with him going home tonight. Patient's wound VAC will need to be placed tomorrow before he is discharged if he remains medically stable tomorrow. Objective Data Objective Data Vital Signs: Vital Signs Temp Pulse Resp BP Pulse Ox O2 Del Method 98 F 88 16 143/80 H 97 Room Air 11/26/24 16:00 11/26/24 16:00 11/26/24 16:00 11/26/24 16:00 11/26/24 16:00 11/26/24 16:00 Oxygen Delivery Method Room Air Weight: 103.7 kg Body Mass Index (BMI) 32.0 Intake & Output: Intake and Output for Last 24 Hours 11/24/24 11/26/24 11/26/24 23:59 00:59 23:59 Intake Total 1668.5 / 1668.5 690.28 / 690.28 1170 / 1170 Output Total 1150 / 1150 700 / 700 Balance 518.5 / 518.5 -9.72 / -9.72 1170 / 1170 Lab / Micro Data 11/26/24 06:22 11/26/24 06:22 Labs: Laboratory Results - last 24 hr 11/25/24 22:13: POC Glucose 262 H 11/26/24 06:22: WBC 9.5, RBC 3.64 L, Hgb 10.3 L, Hct 31.7 L, MCV 87.1, MCH 28.3, MCHC 32.5, RDW Std Deviation 41.4, RDW Coeff of Primo 13.0, Plt Count 355, MPV 10.3, Immature Gran % (Auto) 0.700, Neut % (Auto) 69.4, Lymph % (Auto) 17.2 L, [place] % (Auto) 7.6, Eos % (Auto) 4.6, Baso % (Auto) 0.5, Absolute Neuts (auto) 6.6, Absolute Lymphs (auto) 1.64, Nucleated RBC % 0, Sodium 134, Potassium 4.1, Chloride 99, Carbon Dioxide 22.6, Anion Gap 13, BUN 19, Creatinine 1.00, Estim Creat Clear Calc 91.20, Est GFR (MDRD) Non-Af 85, BUN/Creatinine Ratio 18.7, Glucose 182 H, Calcium 9.0 11/26/24 08:05: POC Glucose 194 H 11/26/24 11:39: POC Glucose 217 H 11/26/24 16:48: POC Glucose 103 Micro: Microbiology 11/21/24 10:57 Blood Culture (Wb) - Anticubital Right Blood Culture - Final No growth in 5 days. 11/21/24 10:57 Blood Culture (Wb) - Anticubital Right Blood Culture - Final No growth in 5 days. 11/22/24 Unknown Tissue - Knee Gram Stain - Final 11/22/24 Unknown Tissue - Knee Wound Culture - Final No growth aerobically. 11/22/24 Unknown Tissue - Knee Anaerobic Culture - Preliminary No growth in 48 hours. 11/22/24 Unknown Tissue - Knee Gram Stain - Final 11/22/24 Unknown Tissue - Knee Wound Culture - Preliminary Gram positive cuauhtemoc 11/22/24 Unknown Tissue - Knee Gram Stain - Final 11/22/24 Unknown Tissue - Knee Wound Culture - Preliminary Gram positive cuauhtemoc 11/21/24 11:05 Wound - Knee Gram Stain - Final 11/21/24 11:05 Wound - Knee Wound Culture - Final No growth aerobically. 11/21/24 11:18 Urine, Clean Catch Urine Culture - Final Culture exhibits no growth. Physical Exam Const alert, oriented x3, no apparent distress and healthy appearing General Appearance: cooperative, well kempt and well developed Orientation / Consciousness: awake, oriented to person, oriented to place and oriented to time HEENT normocephalic and moist oral mucous membranes Eyes PERRL, EOMs intact bilaterally and conjunctivae normal Neck supple, no JVD, thyroid normal and no carotid bruits General: trachea midline Resp normal respiratory effort and clear to auscultation bilaterally Auscultation: Negative for rales, rhonchi or wheezes Cardio regular rate, regular rhythm, no murmurs, no rub and no gallops GI normal to inspection, nondistended, normoactive bowel sounds, soft to palpation, non-tender and non-distended Extremity Extremity Narrative: Patient's right knee was wrapped in surgical dressing this was not removed for examination of the area Neuro oriented x3, CN's II-XII intact bilaterally, no focal motor deficits and no sensory deficits noted Sensorium / Orientation: awake and alert Speech: speech normal Psych affect normal Assessment & Plan Assessment/Plan (1) Infection of prosthetic right knee joint: PLAN: Plan 1. Infection of prosthetic right knee joint-continue antibiotics per infectious diseases, orthopedic surgery is also participating in his care, continue PT and OT, final culture results are pending #2 type 2 diabetes-continue to monitor blood sugars, patient is on basal insulin and sliding scale insulin per Accu-Cheks #3 essential hypertension-patient remains on chlorthalidone Total clinical time spent by myself addressing the patient's medical issues, reviewing all of his data, and collaborating with patient's care team: 35 minutes Charges/Coding Visit Charges Inpatient E&M: 48876 Subs Hosp L2
[2024-11-26 22:00] VITALS: BP 135/79; PULSE 87; RESP 16; TEMP 36.8; O2SAT 97
[2024-11-26] MEDS: Insulin Glargine-YFGN 100 UNIT/ML Pen 55 UNIT SC (22:13)
[2024-11-26 22:40] LABS: Bedside Glucose 194 mg/dL (74-106)
[2024-11-27 01:43] LABS: Vancomycin, Trough Level 21.3 ug/mL (5.0-15.0)
[2024-11-27 02:00] VITALS: BP 132/79; PULSE 76; RESP 15; TEMP 36.9; O2SAT 97
--- NOTE | 2024-11-27 02:39 | PCM.RX.CS ---
Consult Antibiotic Management Pharmacy has been consulted to manage selected antibiotic: Vancomycin Type of Intervention Type of Consult: Follow-up Labs Labs: Sodium 134 mmol/L (133-145) 11/26/24 06:22 Potassium 4.1 mmol/L (3.3-5.1) 11/26/24 06:22 Chloride 99 mmol/L (98-108) 11/26/24 06:22 Carbon Dioxide 22.6 mmol/L (21.0-32.0) 11/26/24 06:22 Anion Gap 13 (5-15) 11/26/24 06:22 BUN 19 mg/dL (4-19) 11/26/24 06:22 Creatinine 1.00 mg/dL (0.70-1.20) 11/26/24 06:22 Est GFR (MDRD) Non-Af 85 (>60) 11/26/24 06:22 BUN/Creatinine Ratio 18.7 RATIO (10-20) 11/26/24 06:22 Glucose 182 mg/dL (70-99) H 11/26/24 06:22 Vancomycin Trough 21.3 ug/mL (5.0-15.0) H 11/27/24 00:06 Random Vancomycin 17.0 ug/mL (0.0-15.0) H 11/25/24 08:40 Microbiology Microbiology: Microbiology 11/21/24 10:57 Blood Culture (Wb) - Anticubital Right Blood Culture - Final No growth in 5 days. 11/21/24 10:57 Blood Culture (Wb) - Anticubital Right Blood Culture - Final No growth in 5 days. 11/22/24 Unknown Tissue - Knee Gram Stain - Final 11/22/24 Unknown Tissue - Knee Wound Culture - Final No growth aerobically. 11/22/24 Unknown Tissue - Knee Anaerobic Culture - Preliminary No growth in 48 hours. 11/22/24 Unknown Tissue - Knee Gram Stain - Final 11/22/24 Unknown Tissue - Knee Wound Culture - Preliminary Gram positive cuauhtemoc 11/22/24 Unknown Tissue - Knee Gram Stain - Final 11/22/24 Unknown Tissue - Knee Wound Culture - Preliminary Gram positive cuauhtemoc 11/21/24 11:05 Wound - Knee Gram Stain - Final 11/21/24 11:05 Wound - Knee Wound Culture - Final No growth aerobically. 11/21/24 11:18 Urine, Clean Catch Urine Culture - Final Culture exhibits no growth. Goal Trough Goal Trough: 15-20 mcg/mL Pharmacy Plan for Drug Dosing Pharmacy Plan for Drug Dosing: Pharmacy Service will continue to monitor and adjust dosing as required. TROUGH 21.3 @ 9 HOURS. HOLD DOSE AND DRAW RANDOM LEVEL IN 8 HOURS Follow-Up Labs Follow-Up Labs: Trough: Vancomycin Date/Time Labs Ordered Labs to be done on [date and time ordered]: 11/27 @ 0881
[2024-11-27] MEDS: 0.9% Saline Lock 10 ML Syringe IV ×2 (05:40→10:15)
[2024-11-27] MEDS: Acetaminophen 500 MG Tablet 1000 MG PO ×2 (05:40→13:32)
[2024-11-27 08:27] VITALS: BP 143/80; PULSE 82; RESP 16; TEMP 36.6; O2SAT 97
[2024-11-27] MEDS: Folic Acid 1 MG Tablet PO (08:39)
[2024-11-27] MEDS: Insulin Lispro 100 UNIT/ML INSULN.PEN SC ×2 (08:39→12:29)
[2024-11-27] MEDS: Chlorthalidone 50 MG Tablet 25 MG PO (08:40)
[2024-11-27] MEDS: Insulin Lispro 100 UNIT/ML INSULN.PEN 20 UNIT SC ×2 (08:40→12:30)
[2024-11-27] MEDS: Lisinopril 20 MG Tablet PO (08:41)
[2024-11-27] MEDS: Enoxaparin 40 MG/0.4 ML Syringe SC (08:41)
--- NOTE | 2024-11-27 08:45 | WOUNDNOTE ---
wound photo: right knee
[2024-11-27 09:10] LABS: Vancomycin, Random Level 13.7 ug/mL (0.0-15.0)
[2024-11-27 09:45] LABS: Bedside Glucose 286 mg/dL (74-106)
--- NOTE | 2024-11-27 09:48 | CASEMGMT ---
Addendum entered by Roberta Paul 11/27/24 14:22: DC instructions sent to [facility] at this time via [employer]. Addendum entered by Roberta Paul 11/27/24 12:03: 1115-ERICK BEAUCHAMP into pt room, pt present and getting ready to assist pt with showering. She states pt does not have to have wound vac at dc now. She is aware of the IV atb change. Made her aware that [facility] will deliver med after 3pm today. She is aware this is an IV push medication now. She requests Mayra's phone number for after dc for financial information. She is aware that this will be placed on pt dc instructions. She denies any further homegoing needs at this time and thanks ERICK BEAUCHAMP for all assistance. Original Note: Received new rx for IV atb. Pt to receive dose at 10am. Uploaded and sent to [facility] and faxed to [facility]. TC to Araceli at [facility], she is aware of new medication order.
[2024-11-27] MEDS: Ceftriaxone 2 GM in 0.9% Normal Saline (50mL MB+) 50 ML IV (10:13)
--- NOTE | 2024-11-27 10:42 | PN.ID_ITS ---
Physical Exam Narrative Feeling better, no fever, no n/v. Had one episode of diarrhea last night. Leg improved. Const alert and no apparent distress Resp normal air movement and clear to auscultation bilaterally Cardio regular rate and regular rhythm GI soft to palpation, non-tender and non-distended Skin no rashes or lesions noted Skin Narrative: R knee incision healing well ID ID: Route of nutrition/ use of supplements: [] Nutritional Intake: [] IV Site: [] Meehan Catheter: [] Assessment & Plan Assessment/Plan (1) Infection of prosthetic right knee joint: PLAN: Now s/p OR 11/22/[address] Humphrey for I&D with complete synovectomy, sinus tract excision, and poly exchange. Initial knee replacement 10/11/24 at [place]. Surg cx with 2 samples showing cutibacterium. Plan on picc and 6 weeks iv ceftriaxone at discharge with stop date 01/03/25 with weekly labs then long course suppressive po doxy. ID followup in 2 weeks. Wrote updated rx, d/w vocational case manager. Will follow
[2024-11-27 11:29] LABS: Bedside Glucose 223 mg/dL (74-106)
[2024-11-27] MEDS: Ferrous Sulfate 325 MG Tablet PO (12:29)
[2024-11-27 13:30] VITALS: BP 143/70; PULSE 88; RESP 18; TEMP 36.7; O2SAT 96
--- NOTE | 2024-11-27 14:01 | DCINST_ITS ---
Discharge Instructions Diet Discharge Diet: 1800 Calorie Control Diet DC O2, CPAP, BIPAP needs Home O2 Discharge instructions: No Dressing / Incision Discharge Activity: Return to Normal Activity May shower in (days): 2 Ice area for (Minutes): 20 (every hour while awake.) Weight Bearing Status: Weight bearing as tolerated (With knee immobilizer in place) Keep extremity elevated above heart level: Operative Extremity Additional Activity Instructions:: Wear elastic stockings for 2 weeks after your surgery. Must maintain knee immobilizer and limit knee flexion until first postoperative visit. Dressing / Incision Call your doctor if your incision/area has: Continuous Slow Oozing, Sudden Increased Bleeding, Increased Pain/ Swelling, Increased Redness and Foul Smelling Discharge Call your doctor if you observe: Fever of 101 or Higher, Coldness, Increased Pain, Numbness or Tingling, Change in Color, Calf discomfort and Uncontrolled pain Cleanse incision/area with: Do not get Incision Wet and Keep Dressing Clean & Dry Follow Up Care Please Follow Up With: Luke Cruz PA-C Test Results: Test results from this visit will be discussed in further detail at your follow- up appointment, if applicable. Discharge Plan Admission Admit Date/Time: 11/21/24 12:58 Primary Reason for Your Visit: Prostatic right knee joint infection Attending Provider: Price Harris Primary Care Provider: Jose Joya Consulting Providers: Albert Humphrey; Cyndie Stanford; Delroy Young; Uziel Patiño Discharge Orders/Prescriptions Prescriptions: New ceftriaxone 2 gram recon soln 2 g IV DAILY 37 Days Rx Instructions: stop date 01/03/25. Dx: knee PJI. Weekly bmp, cbc, ESR. Fax to [phone]. Routine picc care per protocol. oxycodone 5 mg Tablet 5 - 10 mg PO Q4H PRN PRN (Reason: Pain Score 4-10) 5 Days Qty: 15 0RF aspirin 81 mg capsule 81 mg PO BID Qty: 1 0RF Rx Instructions: Vizcarra for 4 weeks pantoprazole [Protonix] 40 mg tablet,delayed release (DR/EC) 40 mg PO DAILY Qty: 30 0RF Continued lisinopril 20 mg tablet 20 mg PO BID chlorthalidone 25 mg tablet 25 mg PO DAILY diclofenac sodium 50 mg tablet,delayed release (DR/EC) 50 mg PO Q12H insulin lispro 100 unit/mL insulin pen 1 sliding scale dose SUBCUT .COMPLEX Patient Comments: Takes 20 units at breakfast, 20 units with lunch and 30 units with dinner Strength 100 UNIT/ML Rx Instructions: 1 sliding scale dose subcutaneously Takes 20 units at breakfast, 20 units with lunch and 30 units with dinner; insulin glargine [Lantus Solostar U-100 Insulin] 100 unit/mL (3 mL) insulin pen 55 unit subcut QHS Discontinued doxycycline monohydrate 100 mg capsule 100 mg PO Q12H Referrals / Follow Up: Jose Joya DO [Primary Care Provider] - Delroy Young MD [Med Staff - Active Staff] - See Referral Note (In 2 weeks) Albert Humphrey MD [Med Staff - Active Staff] - See Referral Note (In 2 weeks) Disposition Disposition (needs filled in before D/C Order can be placed): Home Health Service
--- NOTE | 2024-11-27 14:13 | DS.PCM_ITS ---
Providers Date of Admission: 11/21/24 Date of Discharge: 11/27/24 Primary Care Physician: Dr. Jose Joya, Consultations 11/21/24 15:31 Consult: Onc/Wound/multicultural internship Routine Comment: 11/21/24 15:51 Consult: Orthopedics Routine Consulting Provider: Albert Humphrey Reason for Consult: right knee post op infection EMERGENT Consult: No MD Notified: Yes Date Notified: 11/21/24 Time Notified: 17:14 Method of Notification: Verbal 11/22/24 13:59 Consult: Infectious Disease Routine Consulting Provider: Delroy Young Reason for Consult: r knee acute pji EMERGENT Consult: No Notified: Yes Date Notified: 11/22/24 Time Notified: 14:33 Method of Notification: Text 11/25/24 15:43 Consult: Onc/Wound/multicultural internship Routine Comment: Reason for Consult:: wound/incision needs/ preveena vac wasn't working Reason For Visit: RIGHT KNEE PERIPROSTHETIC INFECTION Diagnosis Discharge Diagnosis (1) Infection of prosthetic right knee joint: Status: Acute Code(s): T84.53XA - Infection and inflammatory reaction due to internal right knee prosthesis, initial encounter Plan 1. Infection of prosthetic right knee joint-with cutibacterium acnes #2 type 2 diabetes-continue to monitor blood sugars, patient is on basal insulin and sliding scale insulin per Accu-Cheks #3 essential hypertension-patient remains on chlorthalidone Medications at Discharge Home Medications chlorthalidone 25 mg tablet 25 mg PO DAILY BP 11/21/24 diclofenac sodium 50 mg tablet,delayed release 50 mg PO Q12H pain 11/21/24 insulin glargine 100 unit/mL (3 mL) subcutaneous pen (Lantus Solostar U-100 Insulin) 55 unit subcut QHS blood sugar 11/21/24 insulin lispro 100 unit/mL subcutaneous pen 1 sliding scale dose subcut .COMPLEX blood sugar 11/21/24 lisinopril 20 mg tablet 20 mg PO BID BP 11/21/24 aspirin 81 mg capsule 81 mg PO BID #1 cap 11/27/24 ceftriaxone 2 gram intravenous solution 2 g IV DAILY 37 days 11/27/24 oxycodone 5 mg tablet 5 - 10 mg (1 - 2 x 5 mg) PO Q4H PRN PRN Pain Score 4-10 5 days #15 tabs 11/27/24 pantoprazole 40 mg tablet,delayed release (Protonix) 40 mg PO DAILY #30 tabs 11/27/24 Hospital Course Operations - (Irrigation debridement, complete synovectomy, sinus tract excision and polyethylene exchange revision of right total knee-11/22/2024) Procedures PICC line placement Summary of Care Provided Minutes Spent on Discharge: 32 Hospital Course: This 64-year-old white male was seen in the emergency room at [facility] with complaints of right knee pain and purulent discharge coming from the knee, he had a history of a knee replacement approximately 6 weeks prior. Labs obtained in the emergency room showed an elevated white blood cell count 11.6, hemoglobin was 12.5, chemistry profile was remarkable for glucose of 282, and urinalysis was unremarkable. Right knee x-rays were obtained that showed a total right knee arthroplasty in good alignment with no evidence of periprosthetic fracture. Patient's orthopedic surgeon was contacted by the emergency room and requested that the hospitalist service admit the patient due to comorbidities. Patient was admitted to [place] [id number] and seen in consultation by orthopedic surgery, he was placed on IV antibiotics and seen in consultation by infectious diseases. Patient underwent a right total knee irrigation debridement, complete synovectomy, sinus tract excision and polyethylene exchange revision. Culture of the right knee eventually grew out Cutibacterium acnes. Patient a PICC line inserted and arranges were made for him to receive IV antibiotics as an outpatient. On 11/27/2024, patient was seen and examined: On examination he appeared in good health and spirits. Vital signs as documented. Skin warm and dry and without overt rashes. Neck without JVD, neck was supple, trachea midline, thyroid was normal. Lungs clear bilaterally, normal air movement was noted. Heart exam notable for regular rhythm, normal sounds and absence of murmurs, rubs or gallops. Abdomen unremarkable and without evidence of organomegaly, masses, or abdominal aortic enlargement. Bowel sounds are present, abdomen is not distended. Extremities-no cyanosis was noted, no clubbing was noted. Neuro: Cranial nerves II through XII are grossly intact, no focal motor deficits were noted, sensation to light touch and pinprick intact, motor exam 5/5 throughout. Psych: Patient is alert and oriented x3, he does not appear anxious or depressed, he does not appear agitated. Patient was discharged home in stable condition on 11/27/2024. Weight / BMI Weight Weight: 103.7 kg Body Mass Index (BMI) 32.0 ABG / Lab / Microbiology Data 11/26/24 06:22 11/26/24 06:22 Laboratory: Laboratory Results - last 24 hr 11/26/24 16:48: POC Glucose 103 11/26/24 22:09: POC Glucose 194 H 11/27/24 00:06: Vancomycin Trough 21.3 H 11/27/24 08:10: Random Vancomycin 13.7 11/27/24 08:30: POC Glucose 286 H 11/27/24 10:57: POC Glucose 223 H Microbiology: Microbiology 11/22/24 Unknown Tissue - Knee Gram Stain - Final 11/22/24 Unknown Tissue - Knee Wound Culture - Final No growth aerobically. 11/22/24 Unknown Tissue - Knee Anaerobic Culture - Final No growth in 5 days. 11/22/24 Unknown Tissue - Knee Gram Stain - Final 11/22/24 Unknown Tissue - Knee Wound Culture - Final Cutibacterium acnes 11/22/24 Unknown Tissue - Knee Anaerobic Culture - Final Cutibacterium acnes 11/22/24 Unknown Tissue - Knee Gram Stain - Final 11/22/24 Unknown Tissue - Knee Wound Culture - Final Cutibacterium acnes 11/22/24 Unknown Tissue - Knee Anaerobic Culture - Final Cutibacterium acnes 11/21/24 10:57 Blood Culture (Wb) - Anticubital Right Blood Culture - Final No growth in 5 days. 11/21/24 10:57 Blood Culture (Wb) - Anticubital Right Blood Culture - Final No growth in 5 days. 11/21/24 11:05 Wound - Knee Gram Stain - Final 11/21/24 11:05 Wound - Knee Wound Culture - Final No growth aerobically. 11/21/24 11:18 Urine, Clean Catch Urine Culture - Final Culture exhibits no growth. D/C Instructions Discharge Diet: 1800 Calorie Control Diet May shower in (days): 2 Ice area for (Minutes): 20 (every hour while awake.) Weight Bearing Status: Weight bearing as tolerated (With knee immobilizer in place) Keep extremity elevated above heart level: Operative Extremity Additional Activity Instructions: Wear elastic stockings for 2 weeks after your surgery. Must maintain knee immobilizer and limit knee flexion until first postoperative visit. Call your doctor if your incision/area has: Continuous Slow Oozing, Sudden Increased Bleeding, Increased Pain/ Swelling, Increased Redness and Foul Smelling Discharge Call your doctor if you observe: Fever of 101 or Higher, Coldness, Increased Pain, Numbness or Tingling, Change in Color, Calf discomfort and Uncontrolled pain Cleanse incision/area with: Do not get Incision Wet and Keep Dressing Clean & Dry DC O2, CPAP, BIPAP Needs Home O2 Discharge instructions: No Please Follow Up With: Luke Cruz PA-C When: 2 weeks postoperatively Meaningful Use Info Meaningful Use Meaningful Use Diagnoses (Choose all that apply): None applicable Ischemic Stroke Statin Dosing Therapy Reference: STATIN DOSE THERAPY REFERENCE: * Patients > 75 years receive moderate or high dose statin therapy. * Patients 75 years or YOUNGER should receive HIGH intensity statin dose unless contraindicated. You will be required to document reason for non-treatment if statin daily dose does not meet guidelines. HIGH DOSE STATIN THERAPY DAILY Atorvastatin > than or = to 40 mg Rosuvastatin > than or = to 20 mg Amlodipine + Atorvastatin > than or = to 2.5/40 mg Ezetimibe + Simvastatin 10/80 mg Simvastatin 80mg Discharge Plan Admission Admit Date/Time: 11/21/24 12:58 Primary Reason for Your Visit: Prostatic right knee joint infection Attending Provider: Price Harris Primary Care Provider: Jose Joya Consulting Providers: Albert Humphrey; Cyndie Stanford; Delroy Young; Uziel Patiño Discharge Orders/Prescriptions Prescriptions: New ceftriaxone 2 gram recon soln 2 g IV DAILY 37 Days Rx Instructions: stop date 01/03/25. Dx: knee PJI. Weekly bmp, cbc, ESR. Fax to [phone]. Routine picc care per protocol. oxycodone 5 mg Tablet 5 - 10 mg PO Q4H PRN PRN (Reason: Pain Score 4-10) 5 Days Qty: 15 0RF aspirin 81 mg capsule 81 mg PO BID Qty: 1 0RF Rx Instructions: Vizcarra for 4 weeks pantoprazole [Protonix] 40 mg tablet,delayed release (DR/EC) 40 mg PO DAILY Qty: 30 0RF Continued lisinopril 20 mg tablet 20 mg PO BID chlorthalidone 25 mg tablet 25 mg PO DAILY diclofenac sodium 50 mg tablet,delayed release (DR/EC) 50 mg PO Q12H insulin lispro 100 unit/mL insulin pen 1 sliding scale dose SUBCUT .COMPLEX Patient Comments: Takes 20 units at breakfast, 20 units with lunch and 30 units with dinner Strength 100 UNIT/ML Rx Instructions: 1 sliding scale dose subcutaneously Takes 20 units at breakfast, 20 units with lunch and 30 units with dinner; insulin glargine [Lantus Solostar U-100 Insulin] 100 unit/mL (3 mL) insulin pen 55 unit subcut QHS Discontinued doxycycline monohydrate 100 mg capsule 100 mg PO Q12H Referrals / Follow Up: Jose Joya DO [Primary Care Provider] - Delroy Young MD [Med Staff - Active Staff] - See Referral Note (In 2 weeks) Albert Humphrey MD [Med Staff - Active Staff] - See Referral Note (In 2 weeks) Disposition Disposition (needs filled in before D/C Order can be placed): Home Health Service Charges/Coding Visit Charges Inpatient E&M: 46256 Disch Hosp >30min
== END 2024-11-27 14:46 | disposition home health service (06) | DRG 467 ==
LOC: ED 13:07 → MS3 13:59
PROVIDERS: Anesthesiology; Hospitalist; Internal Medicine Infectious Disease; Specialist; Admitting Provider Student in an Organized Health Care Education/Training Program; Emergency Provider Emergency Medicine; PCP Family Medicine; Visit Provider Internal Medicine
PROC: 0SRC0JZ Replacement of Right Knee Joint with Synthetic Substitute, Open Approach (ICD-10-PCS; CPT 27301; principal; 2024-11-22 13:40)
DX: T84.53XA Infection and inflammatory reaction due to internal right knee prosthesis, initial encounter (principal); D62 Acute posthemorrhagic anemia; M00.9 Pyogenic arthritis, unspecified; Z66 Do not resuscitate; E11.9 Type 2 diabetes mellitus without complications; I10 Essential (primary) hypertension; Z68.32 Body mass index [BMI] 32.0-32.9, adult; Z79.4 Long term (current) use of insulin; E78.00 Pure hypercholesterolemia, unspecified; M19.90 Unspecified osteoarthritis, unspecified site; K21.9 Gastro-esophageal reflux disease without esophagitis; Z79.1 Long term (current) use of non-steroidal anti-inflammatories (NSAID); E66.811 Obesity, class 1; Z79.82 Long term (current) use of aspirin
CPT/HCPCS: 36415; 36569; 73564; 80048; 80053; 80202; 81001; 82962; 83036; 83605; 85025; 85610; 85730; 87015; 87040; 87070; 87075; 87077; 87086; 87102; 87116; 87176; 87205; 87206; 88305; 93005; 94668; 97110; 97116; 97162; 97166; 97530; 97535; 97802; 99252; 99285; C1776; A4216; G0463; J0696; J2405

== ENCOUNTER 2024-12-03 12:43 | Outpatient (RCR) | payer OTHER, SELFPAY ==
[2024-12-03 14:47] LABS: Anion Gap 13 (5-15); BUN 26 mg/dL (4-19); BUN/Creat Ratio 23.7 RATIO (10-20); Calcium,Total 9.3 mg/dL (7.6-11.0); Carbon Dioxide 23.9 mmol/L (21.0-32.0); Chloride 98 mmol/L (98-108); Creatinine, Serum 1.08 mg/dL (0.70-1.20); EST Glomerular Filtration Rate 77 (>60); Glucose 92 mg/dL (70-99); Potassium 4.2 mmol/L (3.3-5.1); Sodium Level 135 mmol/L (133-145)
[2024-12-03 14:57] LABS: Hematocrit 33.9 % (40-54); Hemoglobin 10.8 g/dL (13.0-16.5); Mean Corp Hgb Conc 31.9 g/dL (32-36); Mean Corpuscular Hgb 28.5 pg (27.0-32.0); Mean Corpuscular Volume 89.4 fL (80-94); Mean Platelet Vol. 11.7 fl (6.2-12.0); Platelet Count 303 K/mm3 (150-450); RBC Distribution Width CV 13.8 % (11.6-14.6); RBC Distribution Width SD 44.9 fl (35.1-43.9); Red Blood Count 3.79 M/mm3 (4.6-6.2); White Blood Count 10.5 K/mm3 (4.4-11.0)
[2024-12-03 15:00] LABS: Erythrocyte Sedimentation Rate 35 mm/hr (0-20)
== END 2024-12-17 21:29 | disposition home or self-care (01) ==
LOC: HHLAB 12:43
PROVIDERS: PCP Family Medicine; Referring Provider Internal Medicine Infectious Disease; Visit Provider Internal Medicine Infectious Disease
DX: T84.50XA Infection and inflammatory reaction due to unspecified internal joint prosthesis, initial encounter (principal)
CPT/HCPCS: 80048; 85027; 85652

== ENCOUNTER → 2024-12-10 | Outpatient (CLI) | payer OTHER, SELFPAY ==
[2024-12-10 12:46] LABS: Erythrocyte Sedimentation Rate 28 mm/hr (0-20)
[2024-12-10 12:50] LABS: Hemoglobin 10.8 g/dL (13.0-16.5); Mean Corp Hgb Conc 31.8 g/dL (32-36); Mean Corpuscular Hgb 28.1 pg (27.0-32.0); Mean Corpuscular Volume 88.5 fL (80-94); Mean Platelet Vol. 12.1 fl (6.2-12.0); Platelet Count 210 K/mm3 (150-450); RBC Distribution Width CV 14.4 % (11.6-14.6); RBC Distribution Width SD 46.7 fl (35.1-43.9); Red Blood Count 3.84 M/mm3 (4.6-6.2); White Blood Count 5.4 K/mm3 (4.4-11.0)
[2024-12-10 14:58] LABS: Anion Gap 14 (5-15); BUN 24 mg/dL (4-19); BUN/Creat Ratio 23.5 RATIO (10-20); Calcium,Total 9.2 mg/dL (7.6-11.0); Chloride 97 mmol/L (98-108); Creatinine, Serum 1.03 mg/dL (0.70-1.20); EST Glomerular Filtration Rate 82 (>60); Glucose 128 mg/dL (70-99); Potassium 4.5 mmol/L (3.3-5.1); Sodium Level 133 mmol/L (133-145)
== END | disposition home or self-care (01) ==
LOC: LABSPEC 10:09
PROVIDERS: PCP Family Medicine; Visit Provider Internal Medicine Infectious Disease
DX: T84.50XA Infection and inflammatory reaction due to unspecified internal joint prosthesis, initial encounter (principal)
CPT/HCPCS: 80048; 85027; 85652

== ENCOUNTER 2024-12-17 09:39 | Outpatient (CLI) | payer OTHER, SELFPAY ==
[2024-12-17 12:11] LABS: Erythrocyte Sedimentation Rate 20 mm/hr (0-20)
[2024-12-17 12:22] LABS: Hematocrit 29.7 % (40-54); Hemoglobin 9.7 g/dL (13.0-16.5); Mean Corp Hgb Conc 32.7 g/dL (32-36); Mean Corpuscular Hgb 28.6 pg (27.0-32.0); Mean Corpuscular Volume 87.6 fL (80-94); Mean Platelet Vol. 11.8 fl (6.2-12.0); Platelet Count 205 K/mm3 (150-450); RBC Distribution Width CV 14.7 % (11.6-14.6); RBC Distribution Width SD 47.2 fl (35.1-43.9); Red Blood Count 3.39 M/mm3 (4.6-6.2); White Blood Count 4.4 K/mm3 (4.4-11.0)
[2024-12-17 12:31] LABS: Anion Gap 13 (5-15); BUN 23 mg/dL (4-19); BUN/Creat Ratio 24.7 RATIO (10-20); Calcium,Total 9.5 mg/dL (7.6-11.0); Carbon Dioxide 22.2 mmol/L (21.0-32.0); Chloride 101 mmol/L (98-108); Creatinine, Serum 0.93 mg/dL (0.70-1.20); EST Glomerular Filtration Rate 93 (>60); Glucose 83 mg/dL (70-99); Potassium 4.4 mmol/L (3.3-5.1); Sodium Level 136 mmol/L (133-145)
[2024-12-21 17:38] LABS: Hemoglobin A1c 6.6 % (<=5.6)
[2024-12-21 17:46] LABS: Cholesterol 147 mg/dL (<=200); High Density Lipoprotein 39 mg/dL; Low Density Lipoprotein Calc. 86 mg/dL; PSA,Total - Annual Screen 3.88 ng/mL (0.02-4.00); Triglycerides 111 mg/dL; Very Low Density Lipoprotein 22 mg/dL (5-40)
== END 2024-12-17 23:59 | disposition home or self-care (01) ==
LOC: LABSPEC 09:40
PROVIDERS: PCP Family Medicine; Visit Provider Internal Medicine Infectious Disease
DX: E78.2 Mixed hyperlipidemia (principal); E10.9 Type 1 diabetes mellitus without complications; T84.53XA Infection and inflammatory reaction due to internal right knee prosthesis, initial encounter
CPT/HCPCS: 80048; 80061; 83036; 84153; 85027; 85652; G0103

== ENCOUNTER → 2024-12-24 | Outpatient (CLI) | payer OTHER, SELFPAY ==
[2024-12-24 15:51] LABS: Hematocrit 30.9 % (40-54); Hemoglobin 9.8 g/dL (13.0-16.5); Mean Corp Hgb Conc 31.7 g/dL (32-36); Mean Corpuscular Hgb 28.1 pg (27.0-32.0); Mean Corpuscular Volume 88.5 fL (80-94); Mean Platelet Vol. 11.6 fl (6.2-12.0); Platelet Count 281 K/mm3 (150-450); RBC Distribution Width CV 14.6 % (11.6-14.6); RBC Distribution Width SD 46.5 fl (35.1-43.9); Red Blood Count 3.49 M/mm3 (4.6-6.2); White Blood Count 2.7 K/mm3 (4.4-11.0)
[2024-12-24 16:29] LABS: Erythrocyte Sedimentation Rate 33 mm/hr (0-20)
[2024-12-24 18:13] LABS: Anion Gap 12 (5-15); BUN 26 mg/dL (4-19); BUN/Creat Ratio 23.9 RATIO (10-20); Calcium,Total 9.3 mg/dL (7.6-11.0); Carbon Dioxide 23.7 mmol/L (21.0-32.0); Chloride 100 mmol/L (98-108); Creatinine, Serum 1.09 mg/dL (0.70-1.20); EST Glomerular Filtration Rate 76 (>60); Glucose 127 mg/dL (70-99); Potassium 4.4 mmol/L (3.3-5.1); Sodium Level 136 mmol/L (133-145)
== END | disposition home or self-care (01) ==
LOC: LABSPEC 12:56
PROVIDERS: PCP Family Medicine; Visit Provider Internal Medicine Infectious Disease
DX: T84.53XA Infection and inflammatory reaction due to internal right knee prosthesis, initial encounter (principal)
CPT/HCPCS: 80048; 85027; 85652

== ENCOUNTER 2024-12-31 17:56 | Outpatient (RCR) | payer OTHER, SELFPAY ==
[2024-12-31 18:19] LABS: Anion Gap 15 (5-15); BUN 25 mg/dL (4-19); BUN/Creat Ratio 20.8 RATIO (10-20); Calcium,Total 9.1 mg/dL (7.6-11.0); Carbon Dioxide 22.5 mmol/L (21.0-32.0); Chloride 99 mmol/L (98-108); EST Glomerular Filtration Rate 68 (>60); Glucose 131 mg/dL (70-99); Potassium 4.2 mmol/L (3.3-5.1); Sodium Level 137 mmol/L (133-145)
[2024-12-31 20:11] LABS: Erythrocyte Sedimentation Rate 21 mm/hr (0-20)
[2024-12-31 20:12] LABS: Hematocrit 31.3 % (40-54); Hemoglobin 9.8 g/dL (13.0-16.5); Mean Corp Hgb Conc 31.3 g/dL (32-36); Mean Corpuscular Hgb 27.8 pg (27.0-32.0); Mean Corpuscular Volume 88.7 fL (80-94); Mean Platelet Vol. 10.9 fl (6.2-12.0); Platelet Count 258 K/mm3 (150-450); RBC Distribution Width CV 15.1 % (11.6-14.6); RBC Distribution Width SD 47.8 fl (35.1-43.9); Red Blood Count 3.53 M/mm3 (4.6-6.2); White Blood Count 8.3 K/mm3 (4.4-11.0)
== END 2025-01-16 18:00 | disposition home or self-care (01) ==
LOC: HHLAB 17:56
PROVIDERS: PCP Family Medicine; Referring Provider Internal Medicine Infectious Disease; Visit Provider Internal Medicine Infectious Disease
DX: T84.54XA Infection and inflammatory reaction due to internal left knee prosthesis, initial encounter (principal)
CPT/HCPCS: 80048; 85027; 85652